=== PATIENT | female | born 1945 | race Caucasian/White ===

== ENCOUNTER 2016-05-11 14:58 | Day surgery (SDC) | payer OTHER ==
[~2016-05-11 14:58] MED LIST: ASPI81TA82 PO; ATOR40TA PO; CALC-65 PO; COQ-150C PO; FISH100020 PO; GLUC250C5 PO; LOSA100T3 PO; MULT-65 PO; PLAV75TA PO; SYNT25TA PO; VITATAB11 PO
--- NOTE | 2016-05-11 16:09 | RADRPT ---
EXAM DATE/TIME: 05/11/2016 00:00 [facility] COMPARISON : No previous studies available for comparison. INDICATIONS : Recurrent Left carotid stenosis OBJECTIVE: Temperature: 99 Heart Rate: 80 Blood Pressure: 169/67 Respiratory: 20 Oximetry: 100 PNEUMONIA VACCINE: YES HISTORY OF PRESENT ILLNESS: Patient has history of bilateral carotid aren't endarterectomy on the left side in [address] angiogram demonstrating recurrent high grade stenosis characteristic of intimal hyperplasia greater t baer 80%. The patient has no numbness, weakness or TIAs. She takes aspirin Plavix without difficulty. She has history of coronary artery disease with stenting but no chest pain at this time. There is no history of peripheral vascular disease. The patient at also has a history of abdominal pain recently diagnosed with severe gastritis the mesenteric angiography is also recommended. PAST MEDICAL HISTORY : L Carotid stenosis Gastritis,Gastroparesis Hypercholesterolemia. Hypothyroidism. Hypertension. Osteoarthritis. PAST SURGICAL HISTORY : Carotid endarterectomy. bilateral Carotid stent. states times 5 Left hip Cholecystectomy. SOCIAL HISTORY : No alcohol use. Tobacco; Patient has a ALLERGIES: Erythromycin lesions in colon Codeine-heart flutters MEDICATIONS: [id number] mg q.h.s. CINNAMON 1000 mg q.h.s. B12 1000 mcg q.h.s. ATORVASTATIN 40 mg q.h.s. METOPOROLOL TARTRATE 25 mg q.h.s. MIRALAX 1CAP prn LOSARTAN 25 mg q.d. SYNTHROID 25 mcg q.d. Plavix (Clopidogrel Bisulfate)75 mg q.d. CHANTIX 1 q.d. PHYSICAL EXAMINATION: CV: Regular rate and rhythm. Lungs: Clear to auscultation. Neuro: Cranial nerves II through XII are grossly intact. Motor and sensory intact. 2+ left carotid bruit normal on right well healed bilateral endarterectomy scars IMAGING STUDIES: CT angiography performed at [facility] dated 04/09/16 demonstrates high grade ostial sten osis involving the left common carotid artery origin greater than 80% with 70-80% stenosis involving the left internal carotid artery. 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 The plaque at the reji gin of the left internal carotid artery is irregular with fibrous and calcific material present. ASSESSMENT: Asymptomatic high-grade stenosis with tandem lesions involving the left common carotid artery origin and bifurcation PLAN: Left carotid stenting Diagnostic mesentery angiography TIME SPENT: 15 minutes Armando Fam MD on May 11, 2016 at 15:54 Board Certified Radiologist. This report was verified electronically.
== END 2016-05-11 15:45 | disposition home or self-care (01) ==
LOC: HROP 14:58 → HRIP 14:58 → HROP 15:45
PROVIDERS: ATTEND Surgery Vascular Surgery
DX: I65.23 Occlusion and stenosis of bilateral carotid arteries (principal); K31.84 Gastroparesis; I25.10 Atherosclerotic heart disease of native coronary artery without angina pectoris; E03.9 Hypothyroidism, unspecified; E78.00 Pure hypercholesterolemia, unspecified; Z95.5 Presence of coronary angioplasty implant and graft; Z79.02 Long term (current) use of antithrombotics/antiplatelets
CPT/HCPCS: 99213; G0463

== ENCOUNTER 2016-05-13 09:50 | Inpatient (IN) | payer OTHER, MEDICARE ==
[2016-05-13] VITALS (11 sets, daily range): BP systolic 118–166; BP diastolic 54–72; PULSE 49–66; RESP 16–20; TEMP 96.9–98.4; O2SAT 96–99
[~2016-05-13] VITALS: Ht 156.2 cm; Wt 53.0 kg
[2016-05-13] MEDS ORDERED: ATOR40TA16 PO (10:26)
[2016-05-13] MEDS ORDERED: SYNT25TA PO (10:26)
[2016-05-13] MEDS ORDERED: ASPI1TAB69 PO (10:26)
[2016-05-13] MEDS ORDERED: GLUC500C5 PO (10:26)
[2016-05-13] MEDS ORDERED: PLAV75TA29 PO (10:26)
[2016-05-13] MEDS ORDERED: BIOT1TAB2 PO (10:26)
[2016-05-13] MEDS ORDERED: B COTAB6 PO (10:26)
[2016-05-13] MEDS ORDERED: CINN500C PO (10:26)
[2016-05-13] MEDS ORDERED: CHOL1CHW5 PO (10:26)
[2016-05-13] MEDS ORDERED: VITA10004 PO (10:26)
[2016-05-13] MEDS ORDERED: LOSA50TA PO (10:26)
[2016-05-13] MEDS ORDERED: FISH500C PO (10:26)
[2016-05-13] MEDS ORDERED: METO25TA3 PO (10:26)
[2016-05-13] MEDS ORDERED: CO Q200C PO (10:26)
[2016-05-13] MEDS ORDERED: MIRA33504 PO (10:26)
[2016-05-13] MEDS ORDERED: PANT40TA3 PO (10:27)
[2016-05-13] MEDS ORDERED: LACTCAP8 PO (10:27)
[2016-05-13] MEDS ORDERED: VARE1PAK5 PO (10:27)
[2016-05-13] MEDS ORDERED: SUCR1TAB PO (10:27)
[2016-05-13] MEDS ORDERED: SODIUM CHLOR 0.9% 1000 ML INJ 1,000 ML IV SCH (10:30)
[2016-05-13 11:05] LABS: AUTOMATED NEUTROPHIL # 3.4 TH/MM3 (1.8-7.7); BASOPHIL % 0.1 % (0.0-2.0); EOSINOPHIL % 0.2 % (0.0-4.0); HEMATOCRIT 36.8 % (35.0-46.0); HEMO FLAGS DIFF FINAL; LYMPH % 22.4 % (9.0-44.0); LYMPHOCYTE # 1.2 TH/MM3 (1.0-4.8); MEAN CELL VOLUME 81.9 FL (80.0-100.0); MEAN CORPUSCULAR HGB CONC 34.2 % (32.0-36.0); MONO % 13.1 % (0.0-8.0); NEUT % 64.2 % (16.0-70.0); PLATELET COUNT 108 TH/MM3 (150-450); RED CELL DISTRIBUTION WIDTH 14.7 % (11.6-17.2); WHITE BLOOD COUNT 5.3 TH/MM3 (4.0-11.0)
[2016-05-13 11:12] LABS: APTT (PATIENT) 28.4 SEC (24.3-30.1); PROTHROMBIN TIME - PATIENT 11.4 SEC (9.8-11.6)
[2016-05-13 11:21] LABS: BICARBONATE 27.6 MEQ/L (21.0-32.0); POTASSIUM 3.7 MEQ/L (3.5-5.1)
[2016-05-13] MEDS ORDERED: POLYETHYLENE GLYCOL 17 GM PKG PO PRN (12:15)
[2016-05-13] MEDS ORDERED: MIDAZOLAM HCL 5 MG/5 ML VIAL ONE (12:25)
[2016-05-13] MEDS ORDERED: VERAPAMIL INJ 10 MG/4 ML VIAL ONE (12:25)
[2016-05-13] MEDS ORDERED: fentaNYL CITRATE 250 MCG/5 ML AMP ONE (12:25)
[2016-05-13] MEDS: SUCRALFATE 1 GM TAB PO SCH ×3 (13:00→22:00)
[2016-05-13] MEDS ORDERED: ceFAZolin 2 GM PREMIX 50 ML ONE (13:18)
[2016-05-13] MEDS ORDERED: HEPARIN SODIUM - IV 10,000 UNITS/10 ML VIAL ONE (13:34)
[2016-05-13] MEDS ORDERED: ATROPINE SULFATE 1 MG/10 ML SYRINGE ONE (13:38)
[2016-05-13] MEDS ORDERED: IODIXANOL 320 MG/ML 50 ML VIAL (for RAD SPEC) I-ARTERIAL ONE (15:05)
[2016-05-13] MEDS ORDERED: BISACODYL 10 MG SUPP PR PRN (15:30)
[2016-05-13] MEDS ORDERED: MAGNESIUM HYDROXIDE SUSP 30 ML CUP PO PRN (15:30)
[2016-05-13] MEDS ORDERED: PROCHLORPERAZINE 25 MG SUPP PR PRN (15:30)
[2016-05-13] MEDS ORDERED: ONDANSETRON HCL 4 MG/2 ML VIAL IVP PRN (15:30)
[2016-05-13] MEDS ORDERED: ACETAMINOPHEN 325 MG TAB PO PRN (15:30)
[2016-05-13] MEDS ORDERED: SENNOSIDES 8.6 MG TAB PO PRN (15:30)
[2016-05-13] MEDS ORDERED: SODIUM CHLORIDE 0.9% FLUSH 5 ML FLUSH FLUSH PRN (15:30)
--- NOTE | 2016-05-13 15:40 | HHI.HP ---
[facility] Unknown Admission Diagnosis Diagnoses: Chief Complaint: post CEA Travel History International Travel<30 Days: No Contact w/Intl Traveler <30 Da: No Traveled to Known Affected Are: No History of Present Illness 68 y/o female with history of CAD, hypertension,dyslipidemia, hypothyroidism, carotid stenosis. Patient was schedule for CEA today. Was seen in [facility]. Patient is feeling doof. Right groin without bleeding. Say she has a slight headache because she did not drink coffee today. Denies change in vision or motor deficit. No n/v/d/c. No cp, sob, n/v/c/d. Review of Systems 12 system ROS revewed and negative except as stated on HPI Past Family Social History Past Medical History CAD hypertension dyslipidemia hypothyroidism carotid artery disease Past Surgical History Right carotid endarterectomy wounds. Patch angioplasty 07/02/14 Left hip replacement 05/07/[address] Domingo 2005 Multiple cardiac stents Reported Medications Reported Meds & Active Scripts Active Reported Chantix Continuing Month Warren (Varenicline) 1 Mg Warren 1 Mg PO BIDPC Sucralfate 1 Gm Tab 1 Gm PO QID on empty stomach Pantoprazole (Pantoprazole Sodium) 40 Mg Tab 40 Mg PO DAILY Probiotic (Lactobacillus Acidophilus) 1 Cap Cap 1 Cap PO DAILY Glucosamine (Glucosamine Sulfate) 500 Mg Cap 500 Mg PO DAILY Fish Oil (Roscoe-3 Fatty Acids) 500 Mg Cap 1 Cap PO DAILY Co Q-10 (Coenzyme Q10 (Ubidecarenone)) 200 Mg Cap 1 Cap PO DAILY Vitamin D3 (Cholecalciferol) 2,000 Unit Chew 2,000 Units PO DAILY Biotin Maximum Strength (Biotin) 10,000 Mcg Tab 10,000 Mcg PO DAILY Plavix (Clopidogrel Bisulfate) 75 Mg Tab 75 Mg PO DAILY Synthroid (Levothyroxine Sodium) 25 Mcg Tab 25 Mcg PO DAILY Losartan (Losartan Potassium) 50 Mg Tab 25 Mg PO DAILY Miralax Powder (Polyethylene Glycol 3350 Powder) 17 Gm Powd 17 Gm PO DIRECTED PRN Mix and dissolve one measuring cap-ful (17 grams) in water or juice. Metoprolol Tartrate 25 Mg Tab 25 Mg PO HS Atorvastatin (Atorvastatin Calcium) 40 Mg Tab 40 Mg PO HS Vitamin B-12 Cr (Cyanocobalamin) 1,000 Mcg Tab 1,000 Mcg PO HS B Complete (B-Complex W/Biotin & Folic Acid) 1 Tab 1 Tab PO DAILY Cinnamon 500 Mg Cap 1,000 Mg PO HS Aspirin 81 Mg Tabdr 81 Mg PO HS Plavix (Clopidogrel Bisulfate) 75 Mg Tab 75 Mg PO DAILY Coq-10 (Coenzyme Q10 (Ubidecarenone)) 150 Mg Cap 1 Cap PO DAILY Glucosamine Chondroitin (Glucosamine-Chondroitin) 1 Cap Cap 1 Cap PO DAILY Vitamin B Complex 1 Tab PO DAILY Losartan Potassium-HCT 100-12.5 1 Tab Tab 1 Tab PO DAILY Aspir-81 (Aspirin) 81 Mg Tab 81 Mg PO HS Multi-Vitamin Daily (Multivitamins) Daily Tab 1 Tab PO DAILY Calcium Citrate + (Multiple Minerals W/ Vitamins) 1 Tab Tab 1 Tab PO DAILY Fish Oil (Roscoe-3 Fatty Acids) 1,000 Mg Cap 1,000 Mg PO BID Atorvastatin 40 mg (Atorvastatin Calcium) 40 Mg Tab 1 Tab PO HS Synthroid 25 mcg (Levothyroxine Sodium) 25 Mcg Tab 1 Tab PO DAILY Allergies: Coded Allergies: Erythromycin (Verified Adverse Reaction, Severe, LESIONS IN COLON, 05/13/16) Codeine (Verified Adverse Reaction, Intermediate, HEART FLUTTERS, 05/13/16) Family History Father has cardiac problems at 84 ya Grandmother with dementia in 90 ya Mother HTN Social History Smoke 5-6 cigarettes a day, quit today. Says she is taking chantix. Says she used to smoke 1 and 1/2 PPD for 50 years. No alcohol use or illicit drug use Physical Exam Vital Signs Vital Signs Date Time Temp Pulse Resp B/P Pulse Ox O2 Delivery O2 Flow Rate FiO2 05/13/16 10:15 98.4 66 20 137/59 99 Physical Exam GENERAL: This is a well-nourished, well-developed patient, in no apparent distress. SKIN: No rashes, ecchymoses or lesions. Cool and dry. HEAD: Atraumatic. Normocephalic. No temporal or scalp tenderness. EYES: Pupils equal round and reactive. Extraocular motions intact. No scleral icterus. No injection or drainage. ENT: Nose without bleeding, purulent drainage or septal hematoma. Throat without erythema, tonsillar hypertrophy or exudate. Uvula midline. Airway patent. NECK: Trachea midline. No JVD or lymphadenopathy. Supple, nontender, no meningeal signs. CARDIOVASCULAR: Regular rate and rhythm without murmurs, gallops, or rubs. RESPIRATORY: Clear to auscultation. Breath sounds equal bilaterally. No wheezes , rales, or rhonchi. GASTROINTESTINAL: Abdomen soft, non-tender, nondistended. No hepato-splenomegaly , or palpable masses. No guarding. MUSCULOSKELETAL: Right groin with dressing c/d/i,no hematoma. Extremities without clubbing, cyanosis, or edema. No joint tenderness, effusion, or edema noted. No calf tenderness. Negative Homans sign bilaterally. NEUROLOGICAL: Awake and alert. Cranial nerves II through XII intact. Motor and sensory grossly within normal limits. Five out of 5 muscle strength in all muscle groups. Normal speech. Laboratory Laboratory Tests Test 05/13/16 10:25 White Blood Count 5.3 Red Blood Count 4.50 Hemoglobin 12.6 Hematocrit 36.8 Mean Corpuscular Volume 81.9 Mean Corpuscular Hemoglobin 28.0 Mean Corpuscular Hemoglobin 34.2 Concent Red Cell Distribution Width 14.7 Platelet Count 108 Mean Platelet Volume 9.4 Neutrophils (%) (Auto) 64.2 Lymphocytes (%) (Auto) 22.4 Monocytes (%) (Auto) 13.1 Eosinophils (%) (Auto) 0.2 Basophils (%) (Auto) 0.1 Neutrophils # (Auto) 3.4 Lymphocytes # (Auto) 1.2 Monocytes # (Auto) 0.7 Eosinophils # (Auto) 0.0 Basophils # (Auto) 0.0 CBC Comment DIFF FINAL Differential Comment Prothrombin Time 11.4 Prothromb Time International 1.0 Ratio Activated Partial 28.4 Thromboplast Time Sodium Level 138 Potassium Level 3.7 Chloride Level 104 Carbon Dioxide Level 27.6 Anion Gap 6 Blood Urea Nitrogen 10 Creatinine 0.75 Estimat Glomerular Filtration 77 Rate Random Glucose 78 Calcium Level 8.6 Result Diagram: 05/13/16 1025 05/13/16 1025 Assessment and Plan Assessment and Plan Carotid artery disease. S/P CEA 05/13/[address] Fam. Monitor in Surgical ICU overnight Continue plavix and Aspirin after the procedure, continue statin. -CAD-continue home med, including ASA and plavix continue losartan and statin -Hypertension/ dyslipidemia; continue home meds -Hypothyroidism; continue home meds -OA had left total hip arthroplasty DVT prophylaxis SCD/TEDs per surgeon Code Status full code Discussed Condition With patient, [facility] nurse, Dr Fam Physician Certification 2 Midnight Certification Type: Admission for Inpatient Services Order for Inpatient Services The services are ordered in accordance with Medicare regulations or non- Medicare payer requirements, as applicable. In the case of services not specified as inpatient-only, they are appropriately provided as inpatient services in accordance with the 2-midnight benchmark. Estimated LOS (days): 3 days is the estimated time the patient will need to remain in the hospital, assuming treatment plan goals are met and no additional complications. Post-Hospital Plan: Not yet determined Emi Patrick MD May 13, 2016 15:40
--- NOTE | 2016-05-13 16:59 | PD.RAD ---
Post Procedure Progress Note Pre Procedure Diagnosis: (1) Carotid stenosis Post Procedure Diagnosis: (1) Carotid stenosis Procedure Date: May 13, 2016 Supervising Radiologist: Armando Fam Proceduralist/Assist: Ramón Becerra RT(R), RT Farhan(R)() Anesthesia: Conscious Sedation Plan of Activity Patient to Unit: Critical Care Patient Condition: Good See PACS Report for procedural detail/treatment Vascular-Arterial Procedure Procedure 1 Procedure Site: Left Carotid Procedure(s): Stent Placement Access Access Site(s): Right Femoral Artery Closure Site(s): Right vascular closure device Armando Fam MD May 13, 2016 16:59
[2016-05-13] MEDS: VARENICLINE 1 MG TAB PO SCH (18:00)
[2016-05-13] MEDS: ASPIRIN EC 81 MG TABEC PO SCH (21:57)
[2016-05-13] MEDS: METOPROLOL TARTRATE 25 MG TAB PO SCH (21:58)
[2016-05-13] MEDS: SODIUM CHLORIDE 0.9% FLUSH 5 ML FLUSH FLUSH SCH (21:58)
[2016-05-13] MEDS: ATORVASTATIN 40 MG TAB PO SCH (21:58)
[2016-05-14] VITALS (14 sets, daily range): BP systolic 101–141; BP diastolic 51–62; PULSE 56–90; RESP 14–26; TEMP 97.2–98.8; O2SAT 96–98
[2016-05-14 05:21] LABS: ALKALINE PHOSPHATASE 65 U/L (45-117); ALT (GPT) 9 U/L (10-53); ANION GAP 7 MEQ/L (5-15); AST (GOT) 9 U/L (15-37); BICARBONATE 28.7 MEQ/L (21.0-32.0); BLOOD UREA NITROGEN 10 MG/DL (7-18); CHLORIDE 106 MEQ/L (98-107); GLOMERULAR FILTRATION RATE 82 ML/MIN (>89); POTASSIUM 4.4 MEQ/L (3.5-5.1); SODIUM (NA) 142 MEQ/L (136-145); TOTAL BILIRUBIN ADULT 0.4 MG/DL (0.2-1.0)
--- NOTE | 2016-05-14 07:09 | HHI.DCPOC ---
Discharge Care Plan Goals to Promote Your Health * To prevent worsening of your condition and complications * To maintain your health at the optimal level Directions to Meet Your Goals Take your medications as prescribed Follow your dietary instruction Follow activity as directed Keep your appointments as scheduled Take your immunizations and boosters as scheduled If your symptoms worsen call your PCP, if no PCP go to Urgent Care Center or Emergency Room Smoking is Dangerous to Your Health. Avoid second hand smoke Call the 24-hour hour crisis hotline for domestic abuse at Emi Patrick MD May 14, 2016 07:09
[2016-05-14] MEDS ORDERED: EPINEPHrine HCL (1:10,000) 1 MG/10 ML SYRINGE ONE (07:53)
[2016-05-14] MEDS ORDERED: LIDOCAINE HCL 2% 100 MG/5 ML SYRINGE ONE (07:53)
[2016-05-14] MEDS ORDERED: ATROPINE SULFATE 1 MG/10 ML SYRINGE ONE (07:53)
[2016-05-14] MEDS ORDERED: MORPHINE SULFATE 8 MG/ML INJ ONE (07:57)
--- NOTE | 2016-05-14 08:06 | HHI.PR ---
Subjective Remarks Per nurse she was bleeding from right groin in the morning when she went to the bathroom. Bleeding stopped with pressure. No chest pain , sob, n/v/d/c. No headache. Objective Vitals Vital Signs Date Time Temp Pulse Resp B/P Pulse Ox O2 Delivery O2 Flow Rate FiO2 05/14/16 06:00 68 05/14/16 04:00 57 05/14/16 04:00 57 16 104/51 96 05/14/16 02:00 58 05/14/16 00:00 56 05/14/16 00:00 97.2 56 14 107/53 97 05/13/16 22:00 58 05/13/16 20:00 96.9 62 20 166/72 96 05/13/16 20:00 62 05/13/16 19:34 98 21 05/13/16 19:00 99 Room Air 05/13/16 18:00 98 Room Air 05/13/16 18:00 54 05/13/16 17:43 98.3 50 16 143/63 99 05/13/16 16:55 49 16 147/54 99 05/13/16 16:25 50 16 129/64 99 05/13/16 15:55 49 16 149/70 99 05/13/16 15:25 53 16 118/70 97 05/13/16 15:10 49 16 118/70 97 05/13/16 10:15 98.4 66 20 137/59 99 I/O 05/13/16 05/13/16 05/13/16 05/14/16 05/14/16 05/14/16 07:00 15:00 23:00 07:00 15:00 23:00 Intake Total 240 ml 240 ml Balance 240 ml 240 ml Intake Oral 240 ml 240 ml IV Total 0 ml 0 ml # Voids 2 1 # Bowel Movements 0 0 Result Diagram: 05/13/16 1025 05/14/16 0336 Imaging Last Impressions Vascular Stent Procedure 05/13/16 1500 Signed Impressions: Service Date/Time: May 12:40 - CONCLUSION: 1. Uncomplicated carotid artery stent placement as above. 2. Ultrasound examination at 6, 12, 18 and 24 months following procedure should be performed to evaluate stent patency. Armando Fam MD Objective Remarks GENERAL: This is a well-nourished, well-developed patient, in no apparent distress. SKIN: No rashes, ecchymoses or lesions. Cool and dry. HEAD: Atraumatic. Normocephalic. No temporal or scalp tenderness. EYES: Pupils equal round and reactive. Extraocular motions intact. No scleral icterus. No injection or drainage. ENT: Nose without bleeding, purulent drainage or septal hematoma. Throat without erythema, tonsillar hypertrophy or exudate. Uvula midline. Airway patent. NECK: Trachea midline. No JVD or lymphadenopathy. Supple, nontender, no meningeal signs. CARDIOVASCULAR: Regular rate and rhythm without murmurs, gallops, or rubs. RESPIRATORY: Clear to auscultation. Breath sounds equal bilaterally. No wheezes , rales, or rhonchi. GASTROINTESTINAL: Abdomen soft, non-tender, nondistended. No hepato-splenomegaly , or palpable masses. No guarding. MUSCULOSKELETAL: Right groin with new dressing c/d/i,no hematoma, pressure applied. Extremities without clubbing, cyanosis, or edema. No joint tenderness, effusion, or edema noted. No calf tenderness. Negative Homans sign bilaterally. NEUROLOGICAL: Awake and alert. Cranial nerves II through XII intact. Motor and sensory grossly within normal limits. Five out of 5 muscle strength in all muscle groups. Normal speech. A/P Assessment and Plan Carotid artery disease. S/P left CEA 05/13/[address] Fam. Monitor in Surgical ICU. 05/14 right groin bleeding after she went to the bath hold plavix and Aspirin in am today Continue statin at night. -CAD-continue home med, including ASA and plavix continue losartan and statin -Hypertension/ dyslipidemia; continue home meds -Hypothyroidism; continue home meds -OA had left total hip arthroplasty DVT prophylaxis SCD/TEDs per surgeon Code Status full code Discussed Condition With patient, ICU nurse Emi Patrick MD May 14, 2016 08:06
[2016-05-14] MEDS: LOSARTAN 25 MG TAB PO SCH (08:17)
[2016-05-14] MEDS: SUCRALFATE 1 GM TAB PO SCH ×4 (08:17→22:05)
[2016-05-14] MEDS: LEVOTHYROXINE SODIUM 25 MCG TAB PO SCH (08:17)
[2016-05-14] MEDS: PANTOPRAZOLE SOD 40 MG DELAYED RELEASE TAB PO SCH (08:17)
[2016-05-14] MEDS: SODIUM CHLORIDE 0.9% FLUSH 5 ML FLUSH FLUSH SCH ×2 (08:18→20:33)
[2016-05-14] MEDS: LACTOBACILLUS ACIDOPHILUS TAB PO SCH (08:19)
[2016-05-14] MEDS: CLOPIDOGREL 75 MG TAB PO SCH (08:19)
[2016-05-14] MEDS: VARENICLINE 1 MG TAB PO SCH ×2 (09:00→17:49)
[2016-05-14] MEDS ORDERED: MORPHINE SULFATE 4 MG/ML INJ IV PUSH ONE (09:30)
--- NOTE | 2016-05-14 10:46 | RADRPT ---
EXAM DATE/TIME: 05/13/2016 12:40 [facility] COMPARISON: No previous studies available for comparison. INDICATIONS : Left carotid stenosis. MEDICAL HISTORY : 1.Left carotis stenosis 2. Gastritis 3. Gastroparesis 4. Hypothyroidism 5. HTN 6. Osteoarthritis SURGICAL HISTORY : 1. Carotid endarterectomy bilateral. 2. Left hip 3. Cholecystectomy ENCOUNTER: Initial ACUITY: 3 weeks PAIN SCORE: 04/13 LOCATION: back FLUORO TIME: 34.9 minutes ACCESS SITE: Right Femoral artery SEDATION TIME: 75 minutes CONTRAST: 125 cc Visipaque (iodixanol) MEDICATION(S): 1.) 5 mg midazolam (Versed) IV 2.) 250 mcg fentanyl (Sublimaze) IV Prophylactic antibiotics were administered with appropriate pre-procedure timing. DEVICE(S): 1.) Left common carotid artery 8mm x 17mm stent (balloon expanding) 2.) Left common carotid artery 4.0mm x20mm TROUBLE OPERATOR balloon 3.) Left internal carotid artery 6 SpideRX embolic protection 4.) Left internal carotid artery 4.0 mm x 20mm TROUBLE OPERATOR balloon 5.) Left internal carotid artery 10 -7- 40 stent (self expanding) 6.) Right common femoral artery 8 fr Angio-Seal PROCEDURE : 1. Ultrasound guided puncture of the right common femoral artery. 2. Angiography of the right common femoral artery prior to closure device. 3. Conscious sedation with continuous EKG and oximetry monitoring. 4. Percutaneous closure of the femoral artery. 5. Angiography of the left common carotid artery 6. stenting of the left common carotid artery 7. Angiography of the left internal carotid artery 8. Stenting of the left internal carotid artery The risks, benefits and alternatives to the procedure were explained and verbal and written consent w as obtained. The site was prepped in sterile fashion. Full sterile technique was used, including ca p, mask, sterile gloves and gown and a large sterile sheet. Hand hygiene and 2% chlorhexidine and/or betadine/alcohol prep was utilized per protocol for cutaneous antisepsis. The skin and subcutaneous tissues were infiltrated with local anesthetic solution. With ultrasound and fluoroscopic guidance the right common femoral artery was punctured and a vascula r sheath was placed. Angiography of the common femoral artery was performed for evaluation prior to p ercutaneous closure device placement. The patient has a 2 aortic arch. Examination of the carotid artery demonstrates the lesion to be in t he internal carotid artery. Visible thrombus is not present. Ulceration is present. There is mild robb cification present. The lesion length is 15 millimeters. The minimal luminal diameter is one millimet ers. The diameter of the distal internal carotid artery for reference is 5 millimeters. The percent s tenosis by NASCET criteria is 80 %. Angiography of the left common carotid artery origin demonstrates focal high grade stenosis at the or igin of the left common carotid artery. On systemic heparinization a guidewire was advanced beyond th e stenosis into the external carotid artery. A 6 Telugu sheath was placed at the ostium of the vessel and angiography was confirmatory for high-grade stenosis. Balloon dilatation was performed with a 4 mm balloon and subsequently an 8 mm stent was placed at the ostium. Over this wire a guide catheter w as placed into the common carotid artery. The distal protection device was placed in the high cervica l internal carotid artery. Angiography of the bifurcation demonstrates irregular ulcerated plaque inv olving the internal carotid artery as well as extending proximally to the bifurcation. The prescribed stent was placed and followup angiography demonstrates no significant residual stenosis. Controll ar teriogram of the brain performed prior to procedure as well as the repeat angiogram performed followi ng stenting were unchanged. The patient was neurologically intact at the termination of procedure. The puncture site was closed with a Perclose suture mediated closure device. The patient tolerated t he procedure well and there were no complications. Conscious sedation was performed with the prescribed dosages and duration as above. EKG and oximetry remained stable throughout the procedure. CONCLUSION: 1. Uncomplicated carotid artery stent placement as above. 2. Ultrasound examination at 6, 12, 18 and 24 months following procedure should be performed to evalu ate stent patency. Armando Fam MD on May 14, 2016 at 10:32 Board Certified Radiologist. This report was verified electronically.
[2016-05-14 11:33] LABS: AUTOMATED NEUTROPHIL # 3.9 TH/MM3 (1.8-7.7); BASOPHIL % 0.2 % (0.0-2.0); EOSINOPHIL % 0.1 % (0.0-4.0); HEMATOCRIT 33.8 % (35.0-46.0); HEMO FLAGS DIFF FINAL; LYMPHOCYTE # 0.8 TH/MM3 (1.0-4.8); MEAN CORPUSCULAR HEMOGLOBIN 28.1 PG (27.0-34.0); MEAN CORPUSCULAR HGB CONC 34.7 % (32.0-36.0); NEUT % 68.7 % (16.0-70.0); PLATELET COUNT 100 TH/MM3 (150-450); RED BLOOD COUNT 4.17 MIL/MM3 (4.00-5.30); RED CELL DISTRIBUTION WIDTH 14.4 % (11.6-17.2); WHITE BLOOD COUNT 5.7 TH/MM3 (4.0-11.0)
[2016-05-14] MEDS ORDERED: ONDANSETRON HCL 4 MG/2 ML VIAL IV PUSH PRN (14:15)
--- NOTE | 2016-05-14 18:01 | RADRPT ---
EXAM DATE/TIME: 05/13/2016 12:40 [facility] COMPARISON: No previous studies available for comparison. INDICATIONS : Abdomin pain. Weight loss. MEDICAL HISTORY : 1.HTN 2.Osteoaritis 3.left carotid stenosis 4. Gastroparesis SURGICAL HISTORY : 1.Bilateral carotid endarterctomy 2. Left hip surgery 3. Cholecystectomy ENCOUNTER: Initial ACUITY: 3 weeks PAIN SCORE: 1/10 LOCATION: mid back FLUORO TIME: 34.9 minutes ACCESS SITE: Right Femoral artery SEDATION TIME: 75 minutes CONTRAST: 1.) 125 cc Visipaque (iodixanol) MEDICATION(S): 1.) 5 mg midazolam (Versed) IV 2.) 250 mcg fentanyl (Sublimaze) IV PROCEDURE : 1. Ultrasound-guided puncture of the access site. 2. Angiography of the access site prior to closure device. 3. Conscious sedation with continuous EKG and Oximetry monitoring. 4. Percutaneous closure of the access site. 5. Angiography of the abdominal aorta The risks, benefits and alternatives to the procedure were explained and verbal and written consent w as obtained. The site was prepped in sterile fashion. Full sterile technique was used, including ca p, mask, sterile gloves and gown and a large sterile sheet. Hand hygiene and 2% chlorhexidine and/or betadine/alcohol prep was utilized per protocol for cutaneous antisepsis. The skin and subcutaneous tissues were infiltrated with local anesthetic solution. With ultrasound and fluoroscopic guidance the selected artery was punctured and a vascular sheath was placed. Angiography of the common femoral artery was performed for evaluation prior to percutaneous closure device placement. Digital abdominal aortogram was performed in the AP and lateral projections. The origins of the armin c axis and superior mesenteric artery cannot be identified. The superior mesenteric artery is clearly occluded with a large inferior mesenteric artery arising from a distal aortic stenosis with a large marginal artery supplying at least the right hepatic artery as well as the superior mesenteric artery . This may reflect a replaced right hepatic artery. The left hepatic artery may be arising from the c eliac axis though the splenic artery fills late. Probing of the abdominal aorta with a diagnostic cat heter could not cannulate either the celiac axis or superior mesenteric artery. Hemostasis was obtained with the prescribed medicated closure device. Conscious sedation was perform ed with the prescribed dosages and duration as above. EKG and oximetry remained stable throughout th e procedure. The patient was sent to post anesthesia recovery in stable condition. CONCLUSION: 1. 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 2. Small bowel supply arises in a retrograde fashion from a large marginal artery. 3. The inferior mesenteric artery arises an area of high grade stenosis of the infrarenal, aorta eloise uring 7 mm. 4. Possible replaced right hepatic artery. 5. If There is necessity for further evaluation CT angiography is recommended to further delineate th is anatomy. Armando Fam MD on May 14, 2016 at 17:51 Board Certified Radiologist. This report was verified electronically.
[2016-05-14] MEDS: ASPIRIN EC 81 MG TABEC PO SCH (20:33)
[2016-05-14] MEDS: ATORVASTATIN 40 MG TAB PO SCH (20:34)
[2016-05-14] MEDS: METOPROLOL TARTRATE 25 MG TAB PO SCH (20:34)
[2016-05-15] VITALS (7 sets, daily range): BP systolic 91–131; BP diastolic 44–58; PULSE 66–74; RESP 13–19; TEMP 99.1; O2SAT 96–98
[2016-05-15] MEDS: SUCRALFATE 1 GM TAB PO SCH (08:27)
[2016-05-15] MEDS: LOSARTAN 25 MG TAB PO SCH (09:00)
[2016-05-15] MEDS: VARENICLINE 1 MG TAB PO SCH (09:00)
[2016-05-15] MEDS: LEVOTHYROXINE SODIUM 25 MCG TAB PO SCH (09:30)
[2016-05-15] MEDS: SODIUM CHLORIDE 0.9% FLUSH 5 ML FLUSH FLUSH SCH (09:30)
[2016-05-15] MEDS: LACTOBACILLUS ACIDOPHILUS TAB PO SCH (09:30)
[2016-05-15] MEDS: CLOPIDOGREL 75 MG TAB PO SCH (09:31)
[2016-05-15] MEDS: PANTOPRAZOLE SOD 40 MG DELAYED RELEASE TAB PO SCH (09:31)
== END 2016-05-15 11:30 | disposition home or self-care (01) | DRG 36 ==
LOC: HROP 09:50 → HRIP 09:51 → HROP 15:30 → N03A 15:31
PROVIDERS: ADMIT Hospitalist; ATTEND Hospitalist
PROC: 037J3DZ Dilation of Left Common Carotid Artery with Intraluminal Device, Percutaneous Approach (ICD-10-PCS; principal; 2016-05-13)
PROC: [UNRECOGNIZED PROCEDURE] (2016-05-13)
PROC: B3171ZZ Fluoroscopy of Left Internal Carotid Artery using Low Osmolar Contrast (ICD-10-PCS; 2016-05-13)
PROC: B3141ZZ Fluoroscopy of Left Common Carotid Artery using Low Osmolar Contrast (ICD-10-PCS; 2016-05-13)
DX: I65.22 Occlusion and stenosis of left carotid artery (principal); K31.84 Gastroparesis; I10 Essential (primary) hypertension; E03.9 Hypothyroidism, unspecified; I25.10 Atherosclerotic heart disease of native coronary artery without angina pectoris; E78.5 Hyperlipidemia, unspecified; Z87.891 Personal history of nicotine dependence; Z95.5 Presence of coronary angioplasty implant and graft; M16.12 Unilateral primary osteoarthritis, left hip; Z96.642 Presence of left artificial hip joint; Z79.02 Long term (current) use of antithrombotics/antiplatelets; Z79.82 Long term (current) use of aspirin
CPT/HCPCS: 36200; 37215; 37218; 75625; 76937; 80048; 80053; 85025; 85610; 85730; 87641; 99152; 99153; 99213; C1725; C1760; C1769; C1876; C1884; C1887; C1894; G0463; J0171; J0461; J0690; J1644; J2250; J2270; J3010; J7030; Q9967

== ENCOUNTER 2016-05-20 14:28 | Day surgery (SDC) | payer OTHER ==
[~2016-05-20 14:28] MED LIST changes: +ASPI1TAB69 PO; +ATOR40TA16 PO; +B COTAB6 PO; +BIOT1TAB2 PO; +CHOL1CHW5 PO; +CINN500C PO; +CO Q200C PO; +FISH500C PO; +GLUC500C5 PO; +LACTCAP8 PO; +LOSA50TA PO; +METO25TA3 PO; +MIRA33504 PO; +PANT40TA3 PO; +PLAV75TA29 PO; +SUCR1TAB PO; +VARE1PAK5 PO; +VITA10004 PO
[2016-05-20 15:00] VITALS: BP 129/57; PULSE 68; RESP 20; TEMP 98.4; O2SAT 99
--- NOTE | 2016-05-20 16:00 | RADRPT ---
EXAM DATE/TIME: 05/20/2016 00:00 [facility] COMPARISON : INDICATIONS : Follow up carotid stent OBJECTIVE: Temperature: 98.4 Heart Rate: 68 Blood Pressure: 129/57 Respiratory: 20 Oximetry: 99% PNEUMONIA VACCINE: YES HISTORY OF PRESENT ILLNESS: The patient is a 70-year-old who underwent stenting of the origin of the left common carotid at the [facility] and the origin of the left internal carotid at the bifurcation. The patient tolerated the initial procedure well. The patient did develop a hematoma in the right groin approximately 24 hours post pr ocedure. PAST MEDICAL HISTORY : Carotid stenosis. Arthritis. Hypertension. Cardiovascular disease. Genital warts Subclavian stenosis Hypercholesterolemia. Hypothyroidism. PAST SURGICAL HISTORY : Carotid stent. Carotid endarterectomy. bilateral C Section Gallbladder SOCIAL HISTORY : No alcohol use. Tobacco;former. Patient has a NKDA MEDICATIONS: [id number] mg q.d. Atorvastin 80 mg q.d. Lopressor (Metoprolol) 25 mg q.h.s. Plavix (Clopidogrel Bisulfate) 75 mg q.d. Losartan 50 mg q.d. Levothyroxine 25 mcg q.d. Sucralfate 1 gram q.i.d. Varenicline 1 mg b.i.d. Vitamin B12 1000 mcg q.d. Miralax powder 17 GM q.d. PHYSICAL EXAMINATION: The patient has a large bruise along the lower abdominal wall and in the right groin. There is no shantel dence of pseudoaneurysm. The right leg is warm. There are palpable dorsalis pedis and posterior tibia l pulses. ASSESSMENT: Patient has done well post stenting of the left carotid. There is resolving hematoma in the left groi n. PLAN: The patient was advised to continue Plavix and 81 mg aspirin. The patient will return for reassessmen t of the right groin should she notice an enlarging lump or suture. TIME SPENT: 20 minutes. Kristopher Bass MD on May 20, 2016 at 15:55 Board Certified Radiologist. This report was verified electronically.
== END 2016-05-20 15:55 | disposition home or self-care (01) ==
LOC: HROP 14:28 → HRIP 14:29 → HROP 15:55
PROVIDERS: ATTEND Radiology Body Imaging
DX: I65.22 Occlusion and stenosis of left carotid artery (principal); I25.10 Atherosclerotic heart disease of native coronary artery without angina pectoris; I10 Essential (primary) hypertension; E03.9 Hypothyroidism, unspecified; E78.00 Pure hypercholesterolemia, unspecified; M19.90 Unspecified osteoarthritis, unspecified site; Z87.891 Personal history of nicotine dependence

== ENCOUNTER 2016-06-03 10:50 | Day surgery (SDC) | payer OTHER ==
[~2016-06-03] VITALS: Ht 154.9 cm; Wt 54.5 kg
[~2016-06-03 10:50] MED LIST changes: -ASPI81TA82 PO; -ATOR40TA PO; -CALC-65 PO; -COQ-150C PO; -FISH100020 PO; -GLUC250C5 PO; -LOSA100T3 PO; -MULT-65 PO; -PLAV75TA PO; -VITATAB11 PO
[2016-06-03 11:15] VITALS: BP 167/73; PULSE 57; RESP 20; TEMP 98.1; O2SAT 99
--- NOTE | 2016-06-03 12:51 | RADRPT ---
EXAM DATE/TIME: 06/03/2016 11:34 [facility] COMPARISON: No previous studies available for comparison. INDICATIONS : Right groin bruising. MEDICAL HISTORY : Hypertension. Hypothyroidism. CAD. SURGICAL HISTORY : Carotid stent. Carotid endarterectomy. Patch angioplasty. ENCOUNTER: Initial ACUITY: 1 month PAIN SCORE: 3/10 LOCATION: Right groin. AREA EVALUATED: Right groin. FINDINGS: No pseudoaneurysm identified. There is a patent femoral artery and vein. There is heterogeneous echog enicity but no focal fluid collection is identified. CONCLUSION: 1. No evidence of pseudoaneurysm. Armando Fam MD on June 03, 2016 at 12:49 Board Certified Radiologist. This report was verified electronically.
== END 2016-06-03 12:30 | disposition home or self-care (01) ==
LOC: HRAD 10:50 → HRIP 10:55 → HRAD 12:30
PROVIDERS: ATTEND Radiology Body Imaging
DX: L76.32 Postprocedural hematoma of skin and subcutaneous tissue following other procedure (principal); I25.10 Atherosclerotic heart disease of native coronary artery without angina pectoris; I10 Essential (primary) hypertension; E03.9 Hypothyroidism, unspecified; Z95.5 Presence of coronary angioplasty implant and graft
CPT/HCPCS: 93926

== ENCOUNTER 2017-03-03 20:34 | Emergency (ER) | payer OTHER ==
[~2017-03-03] VITALS: Ht 154.9 cm; Wt 47.5 kg
[~2017-03-03 20:34] MED LIST changes: -CO Q200C PO; +COQ1200C3 PO; -MIRA33504 PO; -PANT40TA3 PO
[2017-03-03 21:00] VITALS: BP 151/61; PULSE 83; RESP 18; TEMP 98.9; O2SAT 99
[2017-03-03] MEDS ORDERED: SODIUM CHLOR 0.9% 1000 ML INJ 1,000 ML IV SCH ×3 (21:44→23:15)
[2017-03-03] MEDS ORDERED: ONDANSETRON HCL 4 MG/2 ML VIAL IVP ONE (21:45)
[2017-03-03] MEDS ORDERED: SODIUM CHLORIDE 0.9% FLUSH 10 ML FLUSH IV FLUSH PRN (21:45)
[2017-03-03] MEDS ORDERED: MORPHINE SULFATE 4 MG/ML INJ IV PUSH ONE (21:45)
--- NOTE | 2017-03-03 21:53 | PD ---
HPI Chief Complaint: Abdominal Pain Time Seen by Provider: 21:38 Travel History International Travel<30 days: No Contact w/Intl Traveler<30days: No Traveled to known affect area: No History of Present Illness HPI The patient is a 71-year-old female that complains of abdominal pain since July of this year. In the last week it has been getting worse and she states she cannot get anything down, the food stops up around the esophagus and then goes down and makes her constipated. She feels dehydrated. She has a history of gastroparesis and ulcer and is followed by Dr. Lehman. She has an appointment Tuesday to see Dr. Valverde now that Dr. Lehman has retired. Her pain is an 8/10, constant and a dull/achy sensation. She denies any blood in the stool and denies any vomiting. She has had a cholecystectomy. PFSH Past Medical History Arthritis: Yes Depression: No Cancer: No Cardiovascular Problems: Yes (CAD, MULTIPLE CARDIAC STENTS) High Cholesterol: Yes Chemotherapy: No Cerebrovascular Accident: Yes (TIA 2014) Diabetes: No Diminished Hearing: No Endocrine: Yes Gastrointestinal Disorders: Yes (Gastro peresis, Mesentery artery syndrome) Genitourinary: No Hepatitis: No Hiatal Hernia: No Hypertension: Yes Immune Disorder: No Medical other: Yes (CAROTID/SUBCLAVIN STENOSIS R SIDE--CANNOT TAKE BP'S ON R ARM) Musculoskeletal: Yes (ARTHRITIS) Neurologic: Yes (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) Psychiatric: No Reproductive: Yes (GENITAL WARTS) Respiratory: No (SMOKES 1 PPD) Radiation Therapy: No Thyroid Disease: Yes (HYPOTHYRODISM) Ulcer: Yes (STOMACH 2016) Tetanus Vaccination: < 5 Years Influenza Vaccination: No ?: Not Past Surgical History Abdominal Surgery: Yes (CHOLECYSTECTOMY ) AICD: No Body Medical Devices: CARDIAC STENTS X 6 Cardiac Surgery: Yes (HEART CATH - 6 CARDIAC STENTS) Gynecologic Surgery: Yes (C SECTION 1976) Joint Replacement: Yes (LEFT HIP ) Pacemaker: No Other Surgery: Yes Social History Alcohol Use: No Tobacco Use: Yes (1/2 pack per day) Substance Use: No Allergies-Medications (Allergen,Severity, Reaction): Coded Allergies: erythromycin base (Unverified Adverse Reaction, Severe, LESIONS IN COLON, 03/03/17) codeine (Unverified Adverse Reaction, Intermediate, HEART FLUTTERS, ) Reported Meds & Prescriptions Reported Meds & Active Scripts Active Reported Vitamin D3 Super Strength (Cholecalciferol) 2,000 Unit Tab 2,000 Units PO DAILY Centrum Women Tablet (Multivitamin/Iron/Folic Acid) 18 Mg Iron-400 Mcg Tablet 1 Tab PO DAILY Eql Cinnamon (Cinnamon) 500 Mg Cap 1,000 Mg PO HS Aspirin 81 Mg Chew 81 Mg CHEW DAILY Chantix Continuing Month Warren (Varenicline) 1 Mg Warren 1 Mg PO BIDPC Sucralfate 1 Gm Tab 1 Gm PO QID on empty stomach Probiotic (Lactobacillus Acidophilus) 1 Cap Cap 1 Cap PO DAILY Glucosamine (Glucosamine Sulfate) 500 Mg Cap 500 Mg PO DAILY Fish Oil ([place]-3 Fatty Acids) 500 Mg Cap 1 Cap PO DAILY Co Q-10 (Coenzyme Q10 (Ubidecarenone)) 200 Mg Cap 1 Cap PO DAILY Biotin Maximum Strength (Biotin) 10,000 Mcg Tab 10,000 Mcg PO DAILY Plavix (Clopidogrel Bisulfate) 75 Mg Tab 75 Mg PO DAILY Synthroid (Levothyroxine Sodium) 25 Mcg Tab 25 Mcg PO DAILY Losartan (Losartan Potassium) 50 Mg Tab 25 Mg PO DAILY Metoprolol Tartrate 25 Mg Tab 25 Mg PO HS Atorvastatin (Atorvastatin Calcium) 40 Mg Tab 40 Mg PO HS Vitamin B-12 Cr (Cyanocobalamin) 1,000 Mcg Tab 1,000 Mcg PO HS Review of Systems Except as stated in HPI: all other systems reviewed are Neg Physical Exam Narrative GENERAL: The patient is alert, oriented 3 and moderate apparent distress with her midline epigastric discomfort. The patient appears at least moderately dehydrated. Her vital signs show blood pressure 151/61 but are otherwise normal. SKIN: Focused skin assessment warm/dry. HEAD: Atraumatic. Normocephalic. EYES: Pupils equal and round. No scleral icterus. No injection or drainage. ENT: No nasal bleeding or discharge. Mucous membranes pink and moist. NECK: Trachea midline. No JVD. CARDIOVASCULAR: Regular rate and rhythm. No murmur appreciated. RESPIRATORY: No accessory muscle use. Clear to auscultation. Breath sounds equal bilaterally. GASTROINTESTINAL: Abdomen soft, with tenderness to direct palpation in the midline epigastrium, nondistended. Hepatic and splenic margins not palpable. I can completely reproduce the pain by pressing in the midline epigastrium. No guarding or rebound is present. I do feel the aorta which appears slightly enlarged. MUSCULOSKELETAL: No obvious deformities. No clubbing. No cyanosis. No edema. NEUROLOGICAL: Awake and alert. No obvious cranial nerve deficits. Motor grossly within normal limits. Normal speech. PSYCHIATRIC: Appropriate mood and affect; insight and judgment normal. Data Data Last Documented VS Vital Signs Date Time Temp Pulse Resp B/P (MAP) Pulse Ox O2 Delivery O2 Flow Rate FiO2 03/03/17 23:12 67 18 149/51 (83) 100 Room Air 03/03/17 21:00 98.9 Orders Orders Complete Blood Count With Diff (03/03/17 21:44) Comprehensive Metabolic Panel (03/03/17 21:44) Lipase (03/03/17 21:44) Urinalysis - C+S If Indicated (03/03/17 21:44) Ct Abd/Pel W Iv Contrast(Rout) (03/03/17 21:44) Iv Access Insert/Monitor (03/03/17 21:44) Ecg Monitoring (03/03/17 21:44) Oximetry (03/03/17 21:44) Morphine Inj (Morphine Inj) (03/03/17 21:45) Ondansetron Inj (Zofran Inj) (03/03/17 21:45) Sodium Chlor 0.9% 1000 Ml Inj (Ns 1000 M (03/03/17 21:44) Sodium Chloride 0.9% Flush (Ns Flush) (03/03/17 21:45) Potassium Chloride (Kcl) (03/03/17 22:30) Sodium Chlor 0.9% 1000 Ml Inj (Ns 1000 M (03/03/17 22:30) Iohexol 350 Inj (Omnipaque 350 Inj) (03/03/17 22:45) Sodium Chlor 0.9% 1000 Ml Inj (Ns 1000 M (03/03/17 23:15) Ed Discharge Order (03/03/17 23:48) Labs Laboratory Tests Test 03/03/17 21:30 03/03/17 23:40 White Blood Count 6.4 TH/MM3 Red Blood Count 4.51 MIL/MM3 Hemoglobin 12.5 GM/DL Hematocrit 37.9 % Mean Corpuscular Volume 83.9 FL Mean Corpuscular Hemoglobin 27.6 PG Mean Corpuscular Hemoglobin Concent 32.9 % Red Cell Distribution Width 13.9 % Platelet Count 121 TH/MM3 Mean Platelet Volume 9.1 FL Neutrophils (%) (Auto) 63.3 % Lymphocytes (%) (Auto) 21.4 % Monocytes (%) (Auto) 14.8 % Eosinophils (%) (Auto) 0.3 % Basophils (%) (Auto) 0.2 % Neutrophils # (Auto) 4.1 TH/MM3 Lymphocytes # (Auto) 1.4 TH/MM3 Monocytes # (Auto) 0.9 TH/MM3 Eosinophils # (Auto) 0.0 TH/MM3 Basophils # (Auto) 0.0 TH/MM3 CBC Comment DIFF FINAL Differential Comment Blood Urea Nitrogen 8 MG/DL Creatinine 0.83 MG/DL Random Glucose 107 MG/DL Total Protein 7.3 GM/DL Albumin 3.8 GM/DL Calcium Level 9.3 MG/DL Alkaline Phosphatase 63 U/L Aspartate Amino Transf (AST/SGOT) 14 U/L Alanine Aminotransferase (ALT/SGPT) 17 U/L Total Bilirubin 0.5 MG/DL Sodium Level 140 MEQ/L Potassium Level 3.0 MEQ/L Chloride Level 105 MEQ/L Carbon Dioxide Level 24.5 MEQ/L Anion Gap 11 MEQ/L Estimat Glomerular Filtration Rate 68 ML/MIN Lipase 207 U/L Urine pH 6.5 Urine Protein NEG mg/dL Urine Glucose (UA) NEG mg/dL Urine Ketones NEG mg/dL Urine Occult Blood NEG Urine Nitrite NEG Urine Bilirubin NEG Urine Leukocyte Esterase NEG MDM Medical Decision Making Medical Screen Exam Complete: Yes Emergency Medical Condition: Yes Medical Record Reviewed: Yes Interpretation(s) The CBC is normal. The complete metabolic profile shows a potassium of 3.0 but is otherwise unremarkable. The lipase is normal. The CT scan of the abdomen/ pelvis shows no acute finding to explain the patient's symptoms. There is severe atherosclerotic disease with a take and questionable high-grade narrowing of the proximal superior mesenteric artery. Differential Diagnosis Ulcer pain, pancreatitis, esophageal stricture, colitis, electrolyte disorder, dehydration Narrative Course The patient appears to have ulcer pain/esophageal irritation. She may have an esophageal stricture. Nevertheless, the patient has been able to handle clear liquids here and can drink clear liquids until Tuesday when she sees Dr. Valverde. She is given Percocet 5 for pain and Zofran for nausea should either occur. She is comfortable at this time. Additional Instructions: Continue to hydrate herself with clear liquids like Gatorade, water and crackers and popsicles. They do make Pedialyte popsicles. Do not miss the appointment Tuesday with Dr. Valverde. Med/Other Pt SpecificInfo: Prescription(s) given Scripts Ondansetron (Zofran) 4 Mg Tab 4 MG PO Q6HR Y for NAUSEA OR VOMITING, #20 TAB 0 Refills Prov: Sonido Bennett MD 03/03/17 Oxycodone-Acetaminophen (Percocet) 5-325 mg Tab 1 TAB PO Q6H Y for PAIN, #20 TAB 0 Refills Prov: Sonido Bennett MD 03/03/17 Disposition: 01 DISCHARGE HOME Condition: Stable Sonido Bennett MD Mar 03, 2017 21:53
[2017-03-03] MEDS ORDERED: CHOL1TAB29 PO (21:55)
[2017-03-03] MEDS ORDERED: ASPI-516 CHEW (21:55)
[2017-03-03] MEDS ORDERED: MULT1TAB59 PO (21:55)
[2017-03-03] MEDS ORDERED: CINN500C2 PO (21:55)
[2017-03-03 22:01] LABS: AUTOMATED NEUTROPHIL # 4.1 TH/MM3 (1.8-7.7); BASOPHIL % 0.2 % (0.0-2.0); EOSINOPHIL % 0.3 % (0.0-4.0); HEMATOCRIT 37.9 % (35.0-46.0); HEMO FLAGS DIFF FINAL; LYMPH % 21.4 % (9.0-44.0); LYMPHOCYTE # 1.4 TH/MM3 (1.0-4.8); MEAN CELL VOLUME 83.9 FL (80.0-100.0); MEAN CORPUSCULAR HEMOGLOBIN 27.6 PG (27.0-34.0); MEAN CORPUSCULAR HGB CONC 32.9 % (32.0-36.0); MONO % 14.8 % (0.0-8.0); NEUT % 63.3 % (16.0-70.0); PLATELET COUNT 121 TH/MM3 (150-450); RED BLOOD COUNT 4.51 MIL/MM3 (4.00-5.30); RED CELL DISTRIBUTION WIDTH 13.9 % (11.6-17.2); WHITE BLOOD COUNT 6.4 TH/MM3 (4.0-11.0)
[2017-03-03 22:07] LABS: CHLORIDE 105 MEQ/L (98-107); SODIUM (NA) 140 MEQ/L (136-145)
[2017-03-03 22:11] LABS: ANION GAP 11 MEQ/L (5-15); BICARBONATE 24.5 MEQ/L (21.0-32.0); BLOOD UREA NITROGEN 8 MG/DL (7-18)
[2017-03-03 22:13] LABS: GLOMERULAR FILTRATION RATE 68 ML/MIN (>89)
[2017-03-03 22:14] LABS: ALT (GPT) 17 U/L (10-53)
[2017-03-03 22:15] LABS: AST (GOT) 14 U/L (15-37)
[2017-03-03 22:16] LABS: TOTAL BILIRUBIN ADULT 0.5 MG/DL (0.2-1.0)
[2017-03-03 22:17] VITALS: O2SAT 100
[2017-03-03 22:17] LABS: ALKALINE PHOSPHATASE 63 U/L (45-117)
[2017-03-03] MEDS ORDERED: POTASSIUM CHLORIDE 20 MEQ CONTROLLED RELEASE TAB PO ONE (22:30)
[2017-03-03] MEDS ORDERED: IOHEXOL 350 MG/ML 10 ML VIAL (for RAD DIAG) IVCONTRAST ONE (22:45)
[2017-03-03 23:12] VITALS: BP 149/51; PULSE 67; RESP 18; O2SAT 100
--- NOTE | 2017-03-03 23:12 | RADRPT ---
EXAM DATE/TIME: 03/03/2017 22:45 [facility] COMPARISON: No previous studies available for comparison. INDICATIONS : Stomach pain since July, worse today. History of gastroparesis. IV CONTRAST: 96 cc Omnipaque 350 (iohexol) IV ORAL CONTRAST: No oral contrast ingested. RADIATION DOSE: 4.97 CTDIvol (mGy) MEDICAL HISTORY : Hypertension. Ulcers. Cardiovascular diseasegastroparesis SURGICAL HISTORY : Cholecystectomy. section.Coronary artery stent. ENCOUNTER: Initial ACUITY: 7 - 11 months PAIN SCALE: 8/10 LOCATION: middle abdomen TECHNIQUE: Volumetric scanning of the abdomen and pelvis was performed. Using automated exposure control and ad justment of the mA and/or kV according to patient size, radiation dose was kept as low as reasonably achievable to obtain optimal diagnostic quality images. DICOM format image data is available electro nically for review and comparison. FINDINGS: LOWER LUNGS: The visualized lower lungs are clear. LIVER: Homogeneous density without lesion. Patient is post cholecystectomy clips in the gallbladder fossa. There is mild enlargement of the central intrahepatic bile ducts. Common bile duct is within normal l imits. SPLEEN: Normal size without lesion. There is a focal calcification. PANCREAS: Within normal limits. KIDNEYS: Normal in size and shape. There is no mass, stone or hydronephrosis. There is a 1.2 cm cyst in the r ight upper pole kidney. An incidental 5 mm low-density lesion is present in the left mid and lower po le kidney and these are too small to characterize. ADRENAL GLANDS: Within normal limits. VASCULAR: There is no aortic aneurysm. There is severe atherosclerotic disease with ectasia. There is possible severe narrowing of the proximal superior mesenteric artery. BOWEL/MESENTERY: The stomach, small bowel, and colon demonstrate no acute abnormality. There is no free intraperitone al air or fluid. ABDOMINAL WALL: Within normal limits. RETROPERITONEUM: There is no lymphadenopathy. BLADDER: Not well-visualized secondary to beam hardening artifact. However, no abnormality is appreciated. REPRODUCTIVE: Not well-visualized secondary to beam hardening artifact. However, no abnormality is appreciated. INGUINAL: There is no lymphadenopathy or hernia. MUSCULOSKELETAL: There are degenerative changes of the lumbar spine with severe facet arthrosis. Left hip arthroplasty hardware is present. CONCLUSION: 1. No acute finding is identified to explain the clinical symptoms. 2. There is severe atherosclerotic disease with ectasia. There is questionable high-grade narrowing o f the proximal superior mesenteric artery. Danish Alvares MD on March 03, 2017 at 23:05 Board Certified Radiologist. This report was verified electronically.
[2017-03-03 23:45] LABS: BLOOD, URINE NEG (NEG); GLUCOSE,URINE NEG (NEG); KETONE, URINE NEG (NEG); NITRITE,URINE NEG (NEG); PH, URINE 6.5 (5.0-8.5)
[2017-03-03 23:46] LABS: URINE COLOR YELLOW (YELLW/STRAW)
[2017-03-03 23:50] LABS: BACTERIA, URINE OCC /hpf; COMMENT (UR) CULT NOT INDICATED; CULTURE IF INDICATED CULT NOT INDICATED; RBC, URINE 0-2 /hpf (0-3); WBC, URINE 0-2 /hpf (0-5)
[2017-03-03] MEDS ORDERED: PERC5TAB12 PO (23:54)
[2017-03-03] MEDS ORDERED: ZOFR4TAB PO (23:54)
[2017-03-04 00:15] VITALS: BP 137/50; PULSE 78; RESP 16; TEMP 98.1; O2SAT 100
== END 2017-03-04 00:29 | disposition home or self-care (01) ==
LOC: PHED 20:34
DX: K20.9 Esophagitis, unspecified (principal); E78.00 Pure hypercholesterolemia, unspecified; I10 Essential (primary) hypertension; F17.210 Nicotine dependence, cigarettes, uncomplicated
CPT/HCPCS: 74177; 80053; 81001; 83690; 85025; 96361; 96374; 96375; 99285; J2270; J2405; J7030; Q9967

== ENCOUNTER 2017-04-03 21:06 | Emergency (ER) | payer OTHER ==
[~2017-04-03] VITALS: Ht 154.9 cm; Wt 46.8 kg
[~2017-04-03 21:06] MED LIST changes: +ASPI-516 CHEW; -ASPI1TAB69 PO; -B COTAB6 PO; -CHOL1CHW5 PO; +CHOL1TAB29 PO; -CINN500C PO; +CINN500C2 PO; +MULT1TAB59 PO; +PERC5TAB12 PO; +ZOFR4TAB PO
[2017-04-03 21:11] VITALS: BP 116/57; PULSE 108; RESP 20; TEMP 98.8; O2SAT 92
--- NOTE | 2017-04-03 21:39 | PD ---
HPI Chief Complaint: Abdominal Pain Time Seen by Provider: 21:32 Travel History International Travel<30 days: No Contact w/Intl Traveler<30days: No Traveled to known affect area: No History of Present Illness HPI The patient was seen and examined in the presence of the nurse. This patient complains of decreased urine output and constipation. Symptoms severity is moderate. She urinated last 13 hours ago. She has history of mesenteric ischemia and has appointment with surgeon on Tuesday. She has lost a lot of weight in the last year. She has taken some sporadic narcotics. She normally has a bowel movement every 3-4 days but has not had one for a week. No alleviating factors. I suspect her constipation is exacerbated by narcotic use. PFSH Past Medical History Arthritis: Yes Depression: No Cancer: No Cardiovascular Problems: Yes (CAD, MULTIPLE CARDIAC STENTS) High Cholesterol: Yes Chemotherapy: No Cerebrovascular Accident: Yes (TIA 2014) Diabetes: No Diminished Hearing: No Endocrine: Yes Gastrointestinal Disorders: Yes (Gastro peresis, Mesentery artery syndrome) Genitourinary: No Hepatitis: No Hiatal Hernia: No Hypertension: Yes Immune Disorder: No Musculoskeletal: Yes (ARTHRITIS) Neurologic: Yes (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) Psychiatric: No Reproductive: Yes (GENITAL WARTS) Respiratory: No (SMOKES 1 PPD) Radiation Therapy: No Thyroid Disease: Yes (HYPOTHYRODISM) Ulcer: Yes (STOMACH 2016) Past Surgical History Abdominal Surgery: Yes (CHOLECYSTECTOMY ) AICD: No Body Medical Devices: CARDIAC STENTS X 6 Cardiac Surgery: Yes (HEART CATH - 6 CARDIAC STENTS) Gynecologic Surgery: Yes (C SECTION 1976) Joint Replacement: Yes (LEFT HIP ) Pacemaker: No Other Surgery: Yes Social History Alcohol Use: No Tobacco Use: Yes (1/2 pack per day) Substance Use: No Allergies-Medications (Allergen,Severity, Reaction): Coded Allergies: erythromycin base (Unverified Adverse Reaction, Severe, LESIONS IN COLON, 04/03/17) codeine (Unverified Adverse Reaction, Intermediate, HEART FLUTTERS, ) Reported Meds & Prescriptions Reported Meds & Active Scripts Active Percocet (Oxycodone-Acetaminophen) 5-325 mg Tab 1 Tab PO Q6H PRN Reported Centrum Women Tablet (Multivitamin/Iron/Folic Acid) 18 Mg Iron-400 Mcg Tablet 1 Tab PO DAILY Eql Cinnamon (Cinnamon) 500 Mg Cap 1,000 Mg PO HS Aspirin 81 Mg Chew 81 Mg CHEW DAILY Sucralfate 1 Gm Tab 1 Gm PO QID on empty stomach Biotin Maximum Strength (Biotin) 10,000 Mcg Tab 10,000 Mcg PO DAILY Plavix (Clopidogrel Bisulfate) 75 Mg Tab 75 Mg PO DAILY Synthroid (Levothyroxine Sodium) 25 Mcg Tab 25 Mcg PO DAILY Losartan (Losartan Potassium) 50 Mg Tab 25 Mg PO DAILY Metoprolol Tartrate 25 Mg Tab 25 Mg PO HS Atorvastatin (Atorvastatin Calcium) 40 Mg Tab 40 Mg PO HS Review of Systems General / Constitutional: Positive: Weight Loss, No: Fever Eyes: No: Visual changes HENT: No: Headaches Cardiovascular: No: Chest Pain or Discomfort Respiratory: No: Shortness of Breath Gastrointestinal: Positive: Constipation, No: Abdominal Pain Genitourinary: Positive: Decreased Urinary Output, No: Dysuria Musculoskeletal: No: Pain Skin: No Rash Neurologic: Positive: Weakness Psychiatric: Positive: Anxiety, No: Depression Endocrine: No: Polydipsia Hematologic/Lymphatic: No: Easy Bruising Physical Exam Narrative GENERAL: Thin elderly well-developed patient in no apparent distress. SKIN: Focused skin assessment reveals no rash and nodules. Skin is Warm and dry. HEAD: Atraumatic. Normocephalic. EYES: Pupils equal and round. No scleral icterus. No injection or drainage. ENT: No nasal bleeding or discharge. Mucous membranes pink and moist. NECK: Trachea midline. No JVD. CARDIOVASCULAR: Regular rate and rhythm. No murmur appreciated. RESPIRATORY: No accessory muscle use. Clear to auscultation. Breath sounds equal bilaterally. GASTROINTESTINAL: Abdomen soft, non-tender, nondistended. Hepatic and splenic margins not palpable. MUSCULOSKELETAL: No obvious deformities. No clubbing. No cyanosis. No edema. NEUROLOGICAL: Awake and alert. No obvious cranial nerve deficits. Motor grossly within normal limits. Normal speech. PSYCHIATRIC: Appropriate mood and affect; insight and judgment normal. Rectal: Normal tone, no mass, no impaction, scant stool in the vault. Patient has profuse genital warts Data Data Last Documented VS Vital Signs Date Time Temp Pulse Resp B/P (MAP) Pulse Ox O2 Delivery O2 Flow Rate FiO2 04/03/17 21:11 98.8 108 20 116/57 (76) 92 Orders Orders Urinary Catheter Insert/Apply (04/03/17 21:32) Complete Blood Count With Diff (04/03/17 21:32) Basic Metabolic Panel (Bmp) (04/03/17 21:32) Iv Access Insert/Monitor (04/03/17 21:32) Sodium Chlorid 0.9% 500 Ml Inj (Ns 500 M (04/03/17 21:45) Urinalysis - C+S If Indicated (04/03/17 22:21) Labs Laboratory Tests Test 04/03/17 21:55 04/03/17 22:20 White Blood Count 17.1 TH/MM3 Red Blood Count 4.40 MIL/MM3 Hemoglobin 12.0 GM/DL Hematocrit 36.9 % Mean Corpuscular Volume 83.7 FL Mean Corpuscular Hemoglobin 27.2 PG Mean Corpuscular Hemoglobin Concent 32.5 % Red Cell Distribution Width 13.8 % Platelet Count 110 TH/MM3 Mean Platelet Volume 9.0 FL Neutrophils (%) (Auto) 75.6 % Lymphocytes (%) (Auto) 6.4 % Monocytes (%) (Auto) 15.9 % Eosinophils (%) (Auto) 0.0 % Basophils (%) (Auto) 2.1 % Neutrophils # (Auto) 12.9 TH/MM3 Lymphocytes # (Auto) 1.1 TH/MM3 Monocytes # (Auto) 2.7 TH/MM3 Eosinophils # (Auto) 0.0 TH/MM3 Basophils # (Auto) 0.4 TH/MM3 CBC Comment AUTO DIFF Differential Total Cells Counted 100 Neutrophils % (Manual) 68 % Band Neutrophils % 7 % Lymphocytes % 13 % Monocytes % 12 % Neutrophils # (Manual) 12.8 TH/MM3 Differential Comment FINAL DIFF MANUAL Platelet Estimate LOW Platelet Morphology Comment NORMAL Red Cell Morphology Comment NORMAL Blood Urea Nitrogen 12 MG/DL Creatinine 0.86 MG/DL Random Glucose 101 MG/DL Calcium Level 8.4 MG/DL Sodium Level 134 MEQ/L Potassium Level 3.6 MEQ/L Chloride Level 102 MEQ/L Carbon Dioxide Level 23.3 MEQ/L Anion Gap 9 MEQ/L Estimat Glomerular Filtration Rate 65 ML/MIN Urine Collection Type CATH Urine Color YELLOW Urine Turbidity MOD Urine pH 6.0 Urine Specific [place] 1.023 Urine Protein 300 OR GREATER mg/dL Urine Glucose (UA) NEG mg/dL Urine Ketones TRACE mg/dL Urine Occult Blood TRACE Urine Nitrite NEG Urine Bilirubin NEG Urine Leukocyte Esterase NEG Urine RBC 4-9 /hpf Urine WBC 0-2 /hpf Urine Squamous Epithelial Cells 0-5 /hpf Urine Amorphous Sediment LARGE Urine Hyaline Casts 3-5 /lpf Urine Granular Casts 3-5 /lpf Urine Fine Granular Casts 6-9 /lpf Urine Coarse Granular Casts /lpf Urine Mucus MANY /lpf Microscopic Urinalysis Comment CATH-CULT NOT IND MDM Medical Decision Making Medical Screen Exam Complete: Yes Emergency Medical Condition: Yes Medical Record Reviewed: Yes Differential Diagnosis Renal failure, dehydration, urinary retention, medication side effect Narrative Course I have reviewed the patient's electronic medical record. IV placed CBC shows some leukocytosis with normal hemoglobin. Does not look septic or toxic. She is afebrile Metabolic profile is normal including normal creatinine Urinalysis shows no sign of infection culture not indicated Patient's abdomen is soft and benign and nontender Villatoro catheter placed to assess for urinary retention I gave her 500 cc of normal saline IV Stable for outpatient follow-up Diagnosis Primary Impression: Generalized weakness Additional Impression: Constipation Qualified Codes: K59.00 - Constipation, unspecified Additional Instructions: The patient was advised to follow up with their physician and return if they worsen. Med/Other Pt SpecificInfo: Other Disposition: DISCHARGE HOME Condition: Stable Moises Barrientos MD Apr 03, 2017 21:39
[2017-04-03] MEDS ORDERED: SODIUM CHLORID 0.9% 500 ML INJ 500 ML IV SCH (21:45)
[2017-04-03 22:04] LABS: AUTOMATED NEUTROPHIL # 12.9 TH/MM3 (1.8-7.7); BASOPHIL # 0.4 TH/MM3 (0-0.2); BASOPHIL % 2.1 % (0.0-2.0); HEMATOCRIT 36.9 % (35.0-46.0); LYMPH % 6.4 % (9.0-44.0); LYMPHOCYTE # 1.1 TH/MM3 (1.0-4.8); MEAN CELL VOLUME 83.7 FL (80.0-100.0); MEAN CORPUSCULAR HEMOGLOBIN 27.2 PG (27.0-34.0); MEAN CORPUSCULAR HGB CONC 32.5 % (32.0-36.0); MONO % 15.9 % (0.0-8.0); MONOCYTE # 2.7 TH/MM3 (0-0.9); NEUT % 75.6 % (16.0-70.0); PLATELET COUNT 110 TH/MM3 (150-450); RED CELL DISTRIBUTION WIDTH 13.8 % (11.6-17.2); WHITE BLOOD COUNT 17.1 TH/MM3 (4.0-11.0)
[2017-04-03 22:15] LABS: BICARBONATE 23.3 MEQ/L (21.0-32.0); CALCIUM 8.4 MG/DL (8.5-10.1)
[2017-04-03 22:19] LABS: CREATININE 0.86 MG/DL (0.50-1.00)
[2017-04-03 22:27] LABS: BILIRUBIN, URINE NEG (NEG); GLUCOSE,URINE NEG (NEG); KETONE, URINE TRACE mg/dL (NEG); NITRITE,URINE NEG (NEG); URINE LEUKOCYTE ESTERASE NEG (NEG)
[2017-04-03 22:32] LABS: BANDS 7 % (0-6); LYMPHOCYTES 13 % (9-44); MONOCYTES 12 % (0-8); NEUTROPHIL # MANUAL DIFF 12.8 TH/MM3 (1.8-7.7); POLYS (SEG NEUTROPHILS) 68 % (16-70)
[2017-04-03 22:44] LABS: BLOOD, URINE TRACE (NEG); URINE COLOR YELLOW (YELLW/STRAW)
[2017-04-03 22:45] LABS: MUCUS URINE MANY /lpf (OCC)
[2017-04-03 22:48] LABS: AMORPHOUS SEDIMENT, URINE LARGE; SQUAMOUS EPITHELIAL CELL URINE 0-5 /hpf (0-5); WBC, URINE 0-2 /hpf (0-5)
[2017-04-03 23:12] VITALS: BP 135/75; PULSE 88; RESP 18; O2SAT 98
== END 2017-04-03 23:13 | disposition home or self-care (01) ==
LOC: PHED 21:06
DX: R53.1 Weakness (principal); K59.00 Constipation, unspecified; M19.90 Unspecified osteoarthritis, unspecified site; I25.10 Atherosclerotic heart disease of native coronary artery without angina pectoris; E78.00 Pure hypercholesterolemia, unspecified; I10 Essential (primary) hypertension; F17.210 Nicotine dependence, cigarettes, uncomplicated; E03.9 Hypothyroidism, unspecified; Z79.82 Long term (current) use of aspirin; Z86.73 Personal history of transient ischemic attack (TIA), and cerebral infarction without residual deficits; Z95.5 Presence of coronary angioplasty implant and graft
CPT/HCPCS: 51702; 80048; 81001; 85007; 85027; 99283; J7040

== ENCOUNTER → 2017-04-12 | Outpatient (CLI) | payer MEDICARE ==
[~2017-04-12] MED LIST changes: -CHOL1TAB29 PO; +COQ-30CA2; -COQ1200C3 PO; -FISH500C PO; -GLUC500C5 PO; +LACT1CAP19; -LACTCAP8 PO; -VARE1PAK5 PO; -VITA10004 PO; -ZOFR4TAB PO
[2017-04-12 12:47] LABS: AUTOMATED NEUTROPHIL # 2.7 TH/MM3 (1.8-7.7); BASOPHIL % 0.2 % (0.0-2.0); EOSINOPHIL % 0.2 % (0.0-4.0); HEMATOCRIT 37.4 % (35.0-46.0); HEMOGLOBIN 12.9 GM/DL (11.6-15.3); LYMPH % 29.5 % (9.0-44.0); LYMPHOCYTE # 1.5 TH/MM3 (1.0-4.8); MEAN CELL VOLUME 82.9 FL (80.0-100.0); MEAN CORPUSCULAR HEMOGLOBIN 28.6 PG (27.0-34.0); MEAN CORPUSCULAR HGB CONC 34.6 % (32.0-36.0); MEAN PLATELET VOLUME 9.5 FL (7.0-11.0); MONO % 15.8 % (0.0-8.0); MONOCYTE # 0.8 TH/MM3 (0-0.9); NEUT % 54.3 % (16.0-70.0); PLATELET COUNT 166 TH/MM3 (150-450); RED BLOOD COUNT 4.51 MIL/MM3 (4.00-5.30); RED CELL DISTRIBUTION WIDTH 14.1 % (11.6-17.2)
[2017-04-12 12:56] LABS: INTERNATIONAL NORMALIZED RATIO 1.1 RATIO; PROTHROMBIN TIME - PATIENT 11.3 SEC (9.8-11.6)
[2017-04-12 13:01] LABS: BILIRUBIN, URINE NEG (NEG); BLOOD, URINE NEG (NEG); GLUCOSE,URINE NEG (NEG); KETONE, URINE NEG (NEG); NITRITE,URINE NEG (NEG); SQUAMOUS EPITHELIAL CELL URINE 2 /hpf (0-5); URINE COLOR LIGHT-YELLOW (YELLW/STRAW); URINE LEUKOCYTE ESTERASE NEG (NEG)
[2017-04-12 13:01] LABS: BICARBONATE 28.5 MEQ/L (21.0-32.0); CALCIUM 9.5 MG/DL (8.5-10.1); CREATININE 0.85 MG/DL (0.50-1.00)
--- NOTE | 2017-04-12 13:01 | RADRPT ---
EXAM DATE/TIME: 04/12/2017 12:39 [facility] COMPARISON: No previous studies available for comparison. INDICATIONS : Evaluate for pneumonia, pneumothorax or communicable disease. Pre op for mesenteric artery bypass. MEDICAL HISTORY : Hypertension. Hypothyroidism. CAD. SURGICAL HISTORY : Carotid stent. Carotid endarterectomy. Patch angioplasty. ENCOUNTER: Initial ACUITY: 1 day PAIN SCORE: 0/10 LOCATION: chest FINDINGS: There is a calcified granuloma in the right middle lobe. Coronary stent present. No focal consolidati on or effusion. Heart size normal. Mildly tortuous aorta. Stent also present in superior mediastinum. Surgical clip right upper quadrant. CONCLUSION: 1. No active disease. Calcified granuloma right middle lobe. Kye Santiago MD on April 12, 2017 at 12:57 Board Certified Radiologist. This report was verified electronically.
--- NOTE | 2017-04-13 22:13 | EKG ---
Date Performed: 04/12/2017 Time Performed: 12:23:52 PTAGE: 71 years EKG: Sinus rhythm . Leftward axis rSr'(V1) - probable normal variant Septal T wave changes are nonspecific Borderline E CG PREVIOUS TRACING : 08/14/2014 11.38 Compared to prior tracing no significant change DOCTOR: Kaern Almanzar Interpretating Date/Time 04/13/2017 22:12:47
== END ==
LOC: CPRE 11:18
PROVIDERS: ATTEND Surgery
DX: Z01.812 Encounter for preprocedural laboratory examination (principal); Z01.811 Encounter for preprocedural respiratory examination; Z01.810 Encounter for preprocedural cardiovascular examination; K55.1 Chronic vascular disorders of intestine
CPT/HCPCS: 36415; 71046; 80048; 81001; 85025; 85610; 85730; 93005

== ENCOUNTER 2017-04-18 06:05 | Inpatient (IN) | payer MEDICARE ==
[~2017-04-18] VITALS: Ht 154.9 cm; Wt 50.0 kg
[~2017-04-18 06:05] MED LIST changes: -BIOT1TAB2 PO; -COQ-30CA2; -LACT1CAP19
[2017-04-18] MEDS ORDERED: LACT1CAP19 (07:11)
[2017-04-18] MEDS ORDERED: COQ-30CA2 (07:11)
[2017-04-18] MEDS ORDERED: METOPROLOL TARTRATE 25 MG TAB PO PRN (07:15)
[2017-04-18] MEDS ORDERED: LACTATED RINGER'S 1000 ML IV PRN (07:15)
[2017-04-18] MEDS ORDERED: POVIDONE IODINE 5% (ANTISEPSIS KIT) 4 APPLICATIONS EACH NARE PRN (07:15)
[2017-04-18] MEDS ORDERED: CHLORHEXIDINE GLUCONATE 2 % 1 PACK (2 CLOTHS) TOPICAL PRN (07:15)
[2017-04-18] MEDS ORDERED: SODIUM CHLORID 0.9% 500 ML IV PRN (07:15)
[2017-04-18] MEDS ORDERED: PROTAMINE SULFATE 50 MG/5 ML VIAL ONE (07:22)
[2017-04-18] MEDS ORDERED: HEPARIN SODIUM - IV 10,000 UNITS/10 ML VIAL ONE (07:22)
[2017-04-18] MEDS ORDERED: THROMBIN (TOPICAL) 20,000 UNIT SPRAY KIT ONE (07:22)
--- NOTE | 2017-04-18 07:33 | PD.VS.PN ---
Pre-operative Note Pre-operative diagnosis: chronic mesenteric ischemia Planned procedure: Mesenteric bypass Interval History: Pt has persistent abdominal pain with eating. + weight loss. No new symptoms that would preclude surgery. Labs: Hct 37 plt 166 cr 0.8 INR 1.1 Blood: T&C 2U PRBC T&C 2U FFP Imaging: CTA reviewed Orders: NPO Ancef 1g IV OCTOR Post-operative destination: [facility] Operative site marked: No (abdominal incision) Consent: Informed consent has been obtained from Estella Sifuentes. I have explained the procedure in detail and discussed the risks, benefits, and potential complications. All questions have been answered. Patient contact information: Daughter [phone] Simone Levy MD Apr 18, 2017 07:33
[2017-04-18] MEDS ORDERED: ACETAMINOPHEN 1000 MG/100 ML 100 ML IV ONE (07:45)
[2017-04-18] MEDS ORDERED: MIDAZOLAM HCL 2 MG/2 ML VIAL ONE (07:45)
[2017-04-18] MEDS ORDERED: FAMOTIDINE 20 MG/2 ML VIAL ONE (07:45)
[2017-04-18] MEDS ORDERED: HEPARIN SODIUM - SQ 10,000 UNITS/ML VIAL ONE (08:39)
[2017-04-18] MEDS ORDERED: ceFAZolin INJ 1,000 MG VIAL IV ONE ×2 (08:43→12:00)
--- NOTE | 2017-04-18 11:35 | HHI.PR ---
cc: Simone Levy MD; Rohit Millan MD; Leeanne Peng MD Immediate Post Op Note Procedure Date: Apr 18, 2017 Pre Op Diagnosis: chronic mesenteric ischemia Post Op Diagnosis: chronic mesenteric ischemia Surgeon: Simone Levy Open Tenter Operator(s): Sola Valentin Procedure: Aorto-SMA bypass (8mm Dacron) Findings: 2mm hepatic artery palpable SMA pulse after bypass, strong Doppler signals at antimesenteric border Additional Information: 20 minute supraceliac X-clamp Complications: none Specimen(s) removed: none Estimated blood loss: 250mL Anesthesia: General Drains: None Fluids: 2800mL X'oid; 2U FFP IVF Urinary Output (mLs): 360 Patient to: [facility] Patient Condition: Good Implant/Devices: SEE IMPLANT LOG (if applicable) Date/Time of Procedure: SEE SURGICAL CARE RECORD Simone Levy MD Apr 18, 2017 11:34
[2017-04-18] MEDS ORDERED: NALOXONE HCL 0.4 MG/ML AMP IV PUSH PRN (11:45)
[2017-04-18] MEDS ORDERED: GLYCOPYRROLATE 1 MG/5 ML SYRINGE IV PUSH ONE (12:00)
[2017-04-18] MEDS ORDERED: DEXAMETHASONE SOD PHOS 4 MG/ML VIAL IV ONE (12:00)
[2017-04-18] MEDS ORDERED: LIDOCAINE HCL 1% PF 5 ML SYRINGE OTHER ONE (12:00)
[2017-04-18] MEDS ORDERED: ePHEDrine/NS 25 MG/5 ML SYRINGE IV ONE (12:00)
[2017-04-18] MEDS ORDERED: NEOSTIGMINE 5 MG/5 ML SYRINGE IV PUSH ONE (12:00)
[2017-04-18] MEDS ORDERED: ONDANSETRON HCL 4 MG/2 ML VIAL IV PUSH ONE (12:00)
[2017-04-18] MEDS ORDERED: [UNRECOGNIZED DRUG - OTHER] ONE (12:00)
[2017-04-18] MEDS ORDERED: PROPOFOL 200 MG/20 ML AMP IV ONE (12:00)
[2017-04-18] MEDS ORDERED: ESMOLOL HCL 100 MG/10 ML VIAL IV ONE (12:00)
[2017-04-18] MEDS ORDERED: PHENYLEPH/NS 1000 MCG/10 ML SYR IV ONE (12:00)
[2017-04-18] MEDS ORDERED: ROCURONIUM INJ 50 MG/5 ML SYRINGE IV PUSH ONE (12:00)
[2017-04-18] MEDS: MORPHINE SULFATE 30 MG/30 ML PCA IV SCH ×2 (12:54→18:23)
[2017-04-18] MEDS: ENOXAPARIN SODIUM 30 MG/0.3 ML SYRINGE SQ SCH (12:55)
[2017-04-18] MEDS: D5-1/2 NS + KCL 20 MEQ INJ 1,000 ML IV SCH (12:56)
[2017-04-18 13:00] VITALS: BP_SYST 146; BP_SYST 164; BP_DIAS 64; PULSE 78; RESP 16; TEMP 97.8; O2SAT 100
[2017-04-18] MEDS ORDERED: ONDANSETRON HCL 4 MG/2 ML VIAL IV PUSH PRN (13:00)
[2017-04-18 13:03] LABS: HEMATOCRIT 26.3 % (35.0-46.0); HEMOGLOBIN 9.2 GM/DL (11.6-15.3); MEAN CELL VOLUME 82.8 FL (80.0-100.0); MEAN CORPUSCULAR HEMOGLOBIN 29.1 PG (27.0-34.0); MEAN CORPUSCULAR HGB CONC 35.1 % (32.0-36.0); MEAN PLATELET VOLUME 8.8 FL (7.0-11.0); PLATELET COUNT 92 TH/MM3 (150-450); RED BLOOD COUNT 3.18 MIL/MM3 (4.00-5.30); RED CELL DISTRIBUTION WIDTH 14.1 % (11.6-17.2); WHITE BLOOD COUNT 3.9 TH/MM3 (4.0-11.0)
[2017-04-18 13:30] LABS: CALCIUM 8.1 MG/DL (8.5-10.1); CREATININE 0.69 MG/DL (0.50-1.00)
[2017-04-18] MEDS: PCA - TOTAL MG MORPHINE DELIVERED PER SHIFT SCH ×2 (13:51→22:00)
--- NOTE | 2017-04-18 14:31 | RADRPT ---
EXAM DATE/TIME: 04/18/2017 13:17 [facility] COMPARISON: CHEST PA & LAT, April 12, 2017, 12:39. INDICATIONS : Post central line placement. MEDICAL HISTORY : Hypertension. Hypothyroidism. CAD SURGICAL HISTORY : Carotid stent. Carotid endarterectomy. Patch angioplasty ENCOUNTER: Initial ACUITY: 1 day PAIN SCORE: Non-responsive. LOCATION: Bilateral chest FINDINGS: Portable AP view of the chest demonstrates a normal-sized cardiac silhouette. Left subclavian central line tip is at the cavoatrial junction. Nasogastric tube tip extends just beyond the GE junction wit h sentinel hole in the distal esophagus. Lungs are underinflated with stable calcified granuloma in t he right midlung zone. No effusion, consolidation, or pneumothorax is visualized. CONCLUSION: 1. Left subclavian central line distal tip is at the cavoatrial junction. No pneumothorax is visualiz ed. 2. Nasogastric tube distal tip extends just beyond the GE junction and ideally should be advanced sli ghtly. Danish Alvares MD on April 18, 2017 at 14:27 Board Certified Radiologist. This report was verified electronically.
[2017-04-18 15:11] VITALS: BP 158/62; PULSE 80; PULSE 89; RESP 14; TEMP 98; O2SAT 99
[2017-04-18 19:00] VITALS: PULSE 78
[2017-04-18 19:21] VITALS: BP_SYST 110; BP_SYST 119; BP_DIAS 56; BP_DIAS 57; PULSE 69; RESP 17; TEMP 97.8; O2SAT 96
--- NOTE | 2017-04-18 20:15 | PD.CONS ---
[facility] Service Critical Care Medicine Consult Requested By Dr. Levy Reason for Consult medical management of perioperative comorbid conditions Primary Care Physician Aki Resendez MD History of Present Illness This is a 68-year-old female with history of coronary artery disease, peripheral vascular disease who presents for open mesenteric bypass for chronic mesenteric ischemia. She underwent uncomplicated procedure with supraceliac aortic cross-clamp. EBL was estimated to be around 250 mL's. For this she received 2800 mL's crystalloid. She arrives extubated to the CVICU in stable condition. She is arousing from anesthesia, but denies complaints. She does endorse mild abdominal pain which is tolerable to her. ROS otherwise negative. Review of Systems Constitutional: DENIES: Fatigue, Fever, Weight gain, Chills Eyes: DENIES: Blurred vision Respiratory: DENIES: Apneas, Cough, Snoring, Wheezing, Hemoptysis, Sputum production, Shortness of breath Cardiovascular: DENIES: Chest pain, Syncope, Dyspnea on Exertion, PND Gastrointestinal: COMPLAINS OF: Abdominal pain, DENIES: Constipation, Diarrhea , Nausea, Vomiting Neurologic: DENIES: Headache Past Family Social History Allergies: Coded Allergies: erythromycin base (Unverified Adverse Reaction, Severe, LESIONS IN COLON, 04/18/17) codeine (Unverified Adverse Reaction, Intermediate, HEART FLUTTERS, ) Past Medical History CAD hypertension dyslipidemia hypothyroidism carotid artery disease chronic mesenteric ischemia Past Surgical History Right carotid endarterectomy Patch angioplasty 07/02/14 Left hip replacement 05/07/[address] Domingo 2005 Multiple cardiac stents Reported Medications Chantix Continuing Month Warren (Varenicline) 1 Mg Warren 1 Mg PO BIDPC Sucralfate 1 Gm Tab 1 Gm PO QID on empty stomach Pantoprazole (Pantoprazole Sodium) 40 Mg Tab 40 Mg PO DAILY Probiotic (Lactobacillus Acidophilus) 1 Cap Cap 1 Cap PO DAILY Glucosamine (Glucosamine Sulfate) 500 Mg Cap 500 Mg PO DAILY Fish Oil ([place]-3 Fatty Acids) 500 Mg Cap 1 Cap PO DAILY Co Q-10 (Coenzyme Q10 (Ubidecarenone)) 200 Mg Cap 1 Cap PO DAILY Vitamin D3 (Cholecalciferol) 2,000 Unit Chew 2,000 Units PO DAILY Biotin Maximum Strength (Biotin) 10,000 Mcg Tab 10,000 Mcg PO DAILY Plavix (Clopidogrel Bisulfate) 75 Mg Tab 75 Mg PO DAILY Synthroid (Levothyroxine Sodium) 25 Mcg Tab 25 Mcg PO DAILY Losartan (Losartan Potassium) 50 Mg Tab 25 Mg PO DAILY Miralax Powder (Polyethylene Glycol 3350 Powder) 17 Gm Powd 17 Gm PO DIRECTED PRN Mix and dissolve one measuring cap-ful (17 grams) in water or juice. Metoprolol Tartrate 25 Mg Tab 25 Mg PO HS Atorvastatin (Atorvastatin Calcium) 40 Mg Tab 40 Mg PO HS Vitamin B-12 Cr (Cyanocobalamin) 1,000 Mcg Tab 1,000 Mcg PO HS B Complete (B-Complex W/Biotin & Folic Acid) 1 Tab 1 Tab PO DAILY Cinnamon 500 Mg Cap 1,000 Mg PO HS Aspirin 81 Mg Tabdr 81 Mg PO HS Plavix (Clopidogrel Bisulfate) 75 Mg Tab 75 Mg PO DAILY Coq-10 (Coenzyme Q10 (Ubidecarenone)) 150 Mg Cap 1 Cap PO DAILY Glucosamine Chondroitin (Glucosamine-Chondroitin) 1 Cap Cap 1 Cap PO DAILY Vitamin B Complex 1 Tab PO DAILY Losartan Potassium-HCT 100-12.5 1 Tab Tab 1 Tab PO DAILY Aspir-81 (Aspirin) 81 Mg Tab 81 Mg PO HS Multi-Vitamin Daily (Multivitamins) Daily Tab 1 Tab PO DAILY Calcium Citrate + (Multiple Minerals W/ Vitamins) 1 Tab Tab 1 Tab PO DAILY Fish Oil ([place]-3 Fatty Acids) 1,000 Mg Cap 1,000 Mg PO BID Atorvastatin 40 mg (Atorvastatin Calcium) 40 Mg Tab 1 Tab PO HS Synthroid 25 mcg (Levothyroxine Sodium) 25 Mcg Tab 1 Tab PO DAILY Active Ordered Medications See MAR Family History Reviewed and found to be noncontributory to her acute illness Social History +tob, denies etoh, doa. Physical Exam Vital Signs Vital Signs Date Time Temp Pulse Resp B/P (MAP) Pulse Ox O2 Delivery O2 Flow Rate FiO2 04/18/17 18:23 12 04/18/17 15:11 89 04/18/17 15:11 98.0 80 14 158/62 (94) 99 04/18/17 13:51 16 04/18/17 13:00 78 04/18/17 13:00 97.8 78 16 146/64 (91) 100 164/64 (97) 04/18/17 13:00 16 04/18/17 12:54 16 04/18/17 07:20 98.6 56 20 121/50 (73) 100 Physical Exam GENERAL: Elderly female, lying in bed HEENT: Normocephalic. Atraumatic. Pupils equal, round, reactive, conjugate. Mucous membranes are moist NECK: Trachea is midline. There is no JVD. CHEST: Equal chest rise. Nasal cannula oxygen. There is a left subclavian triple-lumen catheter with its site clean, dry, dressing intact CARDIOVASCULAR: Normal rate, regular rhythm. Sinus by telemetry. ABDOMEN: Soft, mildly and appropriately tender to palpation, nondistended. No guarding. Abdominal binder in place. Median laparotomy incision without evidence of bleeding, derma bonded. MUSCULOSKELETAL: Pulses 2+. No peripheral edema. Left radial arterial line in place, site clean and dry. Distal pulses palpable and 2+ radial, DP. Extremities are warm and well-perfused NEUROLOGICAL: RASS 0. CAM -. Follows commands. No focal deficits. Laboratory Laboratory Tests Test 04/18/17 12:45 White Blood Count 3.9 Red Blood Count 3.18 Hemoglobin 9.2 Hematocrit 26.3 Mean Corpuscular Volume 82.8 Mean Corpuscular Hemoglobin 29.1 Mean Corpuscular Hemoglobin Concent 35.1 Red Cell Distribution Width 14.1 Platelet Count 92 Mean Platelet Volume 8.8 Blood Urea Nitrogen 7 Creatinine 0.69 Random Glucose 153 Calcium Level 8.1 Sodium Level 138 Potassium Level 3.4 Chloride Level 102 Carbon Dioxide Level 26.0 Anion Gap 10 Estimat Glomerular Filtration Rate 84 Result Diagram: 04/18/17 1245 04/18/17 1245 Assessment and Plan Assessment and Plan Assessment: 71-year-old female postop day 0 status post laparotomy with aortomesenteric bypass. Agree with monitoring closely in the CVICU. NPO and continue mivf. will likely have ongoing ivf resuscitative needs throughout the early post-operative period. frequent uop monitoring. POD 0 s/p aorto-mesenteric bypass with supraceliac cross-clamp - frequent uop monitoring - strict i/o's - neurovascular checks - mivf - LR 500cc iv x 1 for early post-operative oliguria - trend daily bmp - aggressive pulmonary toilet - wean o2 by nc for goal spo2 > 90% Post-operative pain - GREEN MARKETER - currently adequately controlled. Hyperlipidemia - continue home statin Hypertension - hold home antihypertensives. will restart as needed CAD - hold home beta moreno for now. - hold home plavix Hypothyroidism - continue home synthroid SCDs keep novak, art line, central line today. Dispo: remain in ICU. Critical care medicine will continue to follow along while patient remains in the CVICU. Code Status Full Code Discussed Condition With patient, family, bedside RN, Dr. Cam Millan,Rohit Burnette MD Apr 18, 2017 20:15
[2017-04-18] MEDS: FAMOTIDINE 20 MG/2 ML VIAL IV PUSH SCH (20:43)
[2017-04-18] MEDS: ATORVASTATIN 40 MG TAB PO SCH (20:43)
[2017-04-18 23:27] VITALS: BP_SYST 107; BP_SYST 113; BP_DIAS 44; BP_DIAS 50; PULSE 65; PULSE 67; RESP 15; TEMP 98; O2SAT 96
[2017-04-19] VITALS (8 sets, daily range): BP systolic 92–124; BP diastolic 41–55; PULSE 65–110; RESP 14–18; TEMP 97.9–100.6; O2SAT 92–98
[2017-04-19] MEDS: D5-1/2 NS + KCL 20 MEQ INJ 1,000 ML IV SCH ×3 (03:27→21:07)
[2017-04-19 04:20] LABS: HEMATOCRIT 30.3 % (35.0-46.0); HEMOGLOBIN 10.2 GM/DL (11.6-15.3); MEAN CELL VOLUME 83.5 FL (80.0-100.0); MEAN CORPUSCULAR HGB CONC 33.5 % (32.0-36.0); MEAN PLATELET VOLUME 8.3 FL (7.0-11.0); PLATELET COUNT 96 TH/MM3 (150-450); RED BLOOD COUNT 3.63 MIL/MM3 (4.00-5.30); RED CELL DISTRIBUTION WIDTH 14.5 % (11.6-17.2); WHITE BLOOD COUNT 14.2 TH/MM3 (4.0-11.0)
[2017-04-19 04:48] LABS: BICARBONATE 26.7 MEQ/L (21.0-32.0); CALCIUM 7.6 MG/DL (8.5-10.1); CREATININE 0.62 MG/DL (0.50-1.00)
[2017-04-19] MEDS ORDERED: LACTATED RINGER'S 1000 ML INJ 500 ML IV ONE (05:15)
[2017-04-19] MEDS: PCA - TOTAL MG MORPHINE DELIVERED PER SHIFT SCH ×3 (05:51→22:00)
[2017-04-19] MEDS: LEVOTHYROXINE SODIUM 25 MCG TAB PO SCH (05:52)
[2017-04-19] MEDS ORDERED: HYDROmorphone HCL PF 2 MG/ML VIAL IV PUSH ONE (07:15)
[2017-04-19] MEDS: FAMOTIDINE 20 MG/2 ML VIAL IV PUSH SCH ×2 (07:55→21:06)
--- NOTE | 2017-04-19 08:23 | HHI.CCPN ---
Subjective Remarks/Hospital Course This is a 68-year-old female with history of coronary artery disease, peripheral vascular disease who presents for open mesenteric bypass for chronic mesenteric ischemia. She underwent uncomplicated procedure with supraceliac aortic cross-clamp. EBL was estimated to be around 250 mL's. For this she received 2800 mL's crystalloid. She arrives extubated to the CVICU in stable condition. She is arousing from anesthesia, but denies complaints. She does endorse mild abdominal pain which is tolerable to her. ROS otherwise negative. UO remains marginal, received 250 ml crystalloid boluses. 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 Increase maintenance VF to 120 ml per hour Objective Vital Signs Date Time Temp Pulse Resp B/P (MAP) Pulse Ox O2 Delivery O2 Flow Rate FiO2 04/19/17 07:47 98 21 04/19/17 05:51 15 04/19/17 03:11 68 04/19/17 03:11 97.9 117/50 (72) 124/46 (72) Intake and Output 04/19/17 04/19/17 04/20/17 08:00 16:00 00:00 Intake Total 1599.3 ml Output Total 500 ml Balance 1099.3 ml Result Diagram: 04/19/17 0405 04/19/17 0405 Objective Remarks GENERAL: Elderly female, lying in bed. Mild distress due to pain HEENT: Normocephalic. Atraumatic. Pupils equal, round, reactive, conjugate. Mucous membranes are moist NECK: Trachea is midline. There is no JVD. CHEST: Equal chest rise. Nasal cannula oxygen. There is a left subclavian triple-lumen catheter with its site clean, dry, dressing intact CARDIOVASCULAR: Normal rate, regular rhythm. Sinus by telemetry. ABDOMEN: Soft, mildly and appropriately tender to palpation, nondistended. No guarding. Abdominal binder in place. Median laparotomy incision C/D/I MUSCULOSKELETAL: Pulses 2+. No peripheral edema. Left radial arterial line in place, site clean and dry. Distal pulses palpable and 2+ radial, DP. Extremities are warm and well-perfused NEUROLOGICAL: Follows commands. No focal deficits. A/P Assessment and Plan Assessment: 71-year-old female postop day 1 status post laparotomy with aortomesenteric bypass. Continue monitoring closely in the CVICU. NPO and continue mivf. will likely have ongoing ivf resuscitative needs throughout the early post-operative period. frequent uop monitoring. 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 Hyperlipidemia - continue home statin Hypertension - hold home antihypertensives. borderline hypotensive - Received Additional 500 mL crystalloid bolus for hypotension CAD - holding home beta moreno for now. Holding Plavix Hypothyroidism - continue home Synthroid SCDs keep novak, art line, central line today. Dispo: remain in ICU. Critical care medicine will continue to follow along while patient remains in the CVICU. Level 3 Leeanne Peng MD Apr 19, 2017 08:23
--- NOTE | 2017-04-19 09:40 | PD.VS.PN ---
Subjective POD #: 1 Procedure(s): Aorto-SMA bypass Subjective/Hospital Course intermittent pain last night, controlled with meds + thirsty ENGLE and neuro intact Objective Vitals/I&O Date Time Temp Pulse Resp B/P (MAP) Pulse Ox O2 Delivery O2 Flow Rate FiO2 04/19/17 07:47 98 21 04/19/17 07:00 83 04/19/17 07:00 99.1 80 18 98/47 (64) 95 109/45 (66) 04/19/17 05:51 15 04/19/17 03:11 68 04/19/17 03:11 97.9 65 15 117/50 (72) 96 124/46 (72) 04/18/17 23:27 98.0 65 15 113/50 (71) 96 107/44 (65) 04/18/17 23:27 67 04/18/17 22:00 14 04/18/17 19:21 97.8 69 17 110/56 (74) 96 119/57 (77) 04/18/17 19:00 78 04/18/17 18:23 12 04/18/17 15:11 89 04/18/17 15:11 98.0 80 14 158/62 (94) 99 04/18/17 13:51 16 04/18/17 13:00 78 04/18/17 13:00 97.8 78 16 146/64 (91) 100 164/64 (97) 04/18/17 13:00 16 04/18/17 12:54 16 04/19/17 04/19/17 04/19/17 07:00 15:00 23:00 Intake Total 1599.3 ml Output Total 500 ml Balance 1099.3 ml Exam: alert, oriented ENGLE no distress Incisions: abdominal incision c/d/i Laboratory Laboratory Tests Test 04/18/17 12:45 04/19/17 04:05 White Blood Count 3.9 14.2 Red Blood Count 3.18 3.63 Hemoglobin 9.2 10.2 Hematocrit 26.3 30.3 Mean Corpuscular Volume 82.8 83.5 Mean Corpuscular Hemoglobin 29.1 28.0 Mean Corpuscular Hemoglobin Concent 35.1 33.5 Red Cell Distribution Width 14.1 14.5 Platelet Count 92 96 Mean Platelet Volume 8.8 8.3 Blood Urea Nitrogen 7 10 Creatinine 0.69 0.62 Random Glucose 153 127 Calcium Level 8.1 7.6 Sodium Level 138 138 Potassium Level 3.4 4.0 Chloride Level 102 105 Carbon Dioxide Level 26.0 26.7 Anion Gap 10 6 Estimat Glomerular Filtration Rate 84 95 Assessment and Plan Plan POD#1 Marginal UOP and still in fluid-avid phase of mesenteric reperfusion 1. Increase MIVF and monitor UOP; goal 30cc/h 2. OOB TC/IS 3. Villatoro to remain in for adequate UOP 4. [facility] [facility] [place] [facility] [place] MD Apr 19, 2017 09:40
[2017-04-19] MEDS: ENOXAPARIN SODIUM 30 MG/0.3 ML SYRINGE SQ SCH (12:00)
--- NOTE | 2017-04-19 14:27 | MP ---
cc: REFUGIO LEVY MD DATE OF SURGERY April 18, 2017 PREOPERATIVE DIAGNOSIS Chronic mesenteric ischemia. POSTOPERATIVE DIAGNOSIS Chronic mesenteric ischemia. PROCEDURE Aorta-SMA bypass with 8-mm Dacron. ATTENDING SURGEON Refugio Levy MD SOIL FERTILITY EXTENSION SPECIALIST SURGEON Sola Valentin MD ANESTHESIA General. INDICATIONS Ms. Sifuentes is a 71-year-old female who has chronic mesenteric ischemia and significant comorbidities of hypertension, coronary artery disease with bare metal stent, hypercholesteremia, skin cancer and likely vulvar cancer. She is taken to the operating room for mesenteric bypass given the patient's chronic debilitated state. DESCRIPTION OF PROCEDURE Informed consent was obtained from the patient. She was taken to the operating room and placed supine on the operating room table and appropriate time-out was taken to ensure the patient's identity, the operating site and planned procedure. One gram of Ancef was initiated prior to skin incision and will be discontinued after a single preoperative dose. Everyone the room agreed with the time-out and we proceeded. She was prepped from her chin to her knees. A vertical incision was made in the patient's midline of her abdomen from the xiphoid to just below the umbilicus, carried down in the subcutaneous tissue with electrocautery. The fascia was divided with electrocautery and the peritoneum was sharply entered. The peritoneal contents were explored and there was noted be no anatomic abnormalities. The falciform ligament was divided between the 2-0 silk ties and the ligament was divided. The left lobe of the liver was mobilized by incising the triangular ligament and the esophagus with the nasogastric tube in place was pushed to the patient's left hand side and the ashok of diaphragm was divided thereby exposing the supraceliac aorta. This was circumferentially dissected and an umbilical tape was placed around this. We then dissected collaterally along the anterior aspects of the aorta and indeed there was no celiac artery origin and the first major blood vessel in the anterior aspect of the aorta was the superior mesenteric artery. The cephalad border of the pancreas was dissected free. We then shifted our attention towards the inferomedial colic portion of the procedure. The transverse colon was retracted cephalad and the mesentery was scored. The superior mesenteric vein was identified and the left-hand side of the superior mesenteric artery was identified and dissected free for several cm with side branches controlled with a 2-0 silk for Clemente ties. A tunnel was then made along the anterior border of the superior mesenteric vein behind the pancreas and umbilical tape was placed behind the pancreas in this tunnel. The patient was systemically heparinized with 5-5 mm of IV heparin. Proximal and distal control of the supraceliac aorta were obtained with the finger and DeBakey aortic clamps and a longitudinal arteriotomy was made with an 11 blade and extended with Dickinson scissors. The aorta was endarterectomized slightly and the 8-mm Dacron was brought up on the field, spatulated and sewn end-to-side to the aorta with running 5-0 Prolene suture. At the completion it was flushed and noted to be hemostatic. The clamps were released with the conjunction of our Anesthesia colleagues and the patient remained hemodynamically stable. A Saulo Softgel was placed on the graft and the graft was passed behind the pancreas taking caution not to twist it. A clamp was placed on the graft and proximal and this control of the superior mesenteric artery obtained with profunda clamps and a longitudinal arteriotomy was made with an 11 blade, extended with Dickinson scissors. The graft was cut to appropriate length, spatulated and sewn end-to-side to the SMA with running 6-0 Prolene suture. At completion it was flushed and hemostatic. There was a nice pulse in the distal aspect of the SMA as the clamps were all released. The antimesenteric border of the bowel had a nice Doppler signal and the bowel was pink, perfused and had active peristalsis. The heparin was reversed with protamine. 2 units of FFP were administered. The anastomoses were noted be hemostatic. The SMA anastomosis was re-retroperitonealized by and reapproximating the mesentery with 2-0 Polysorb and the abdominal contents were inspected. The abdomen was closed with #1 looped PDS, 2-0 Polysorb and 4-0 Monocryl. The sponge and needle counts were correct at the end of the case. I was present, scrubbed and performed the entire procedure. MD GINGER Galvan/VIJAY /4:57 PM /9:42 AM
[2017-04-19] MEDS ORDERED: SODIUM CHLOR 0.9% 250 ML INJ 250 ML IV ONE (20:15)
[2017-04-19] MEDS: ATORVASTATIN 40 MG TAB PO SCH (21:00)
[2017-04-20 03:00] VITALS: BP 116/52; PULSE 89; PULSE 90; RESP 15; TEMP 99.5; O2SAT 96
[2017-04-20 04:03] LABS: HEMATOCRIT 26.8 % (35.0-46.0); HEMOGLOBIN 8.8 GM/DL (11.6-15.3); MEAN CELL VOLUME 84.1 FL (80.0-100.0); MEAN CORPUSCULAR HEMOGLOBIN 27.7 PG (27.0-34.0); MEAN PLATELET VOLUME 8.3 FL (7.0-11.0); PLATELET COUNT 79 TH/MM3 (150-450); RED BLOOD COUNT 3.18 MIL/MM3 (4.00-5.30); RED CELL DISTRIBUTION WIDTH 14.7 % (11.6-17.2); WHITE BLOOD COUNT 16.9 TH/MM3 (4.0-11.0)
[2017-04-20 04:22] LABS: BICARBONATE 25.8 MEQ/L (21.0-32.0); CALCIUM 7.3 MG/DL (8.5-10.1); CREATININE 0.71 MG/DL (0.50-1.00)
[2017-04-20 04:36] LABS: CALCIUM-PROTEIN CORRECTED 8.3 MG/DL (8.5-10.1); TOTAL PROTEIN 5.3 GM/DL (6.4-8.2)
[2017-04-20] MEDS: LEVOTHYROXINE SODIUM 25 MCG TAB PO SCH (04:52)
[2017-04-20] MEDS: PCA - TOTAL MG MORPHINE DELIVERED PER SHIFT SCH ×3 (05:50→22:00)
[2017-04-20] MEDS: D5-1/2 NS + KCL 20 MEQ INJ 1,000 ML IV SCH ×2 (05:51→18:36)
[2017-04-20 07:00] VITALS: BP 117/62; PULSE 89; PULSE 90; RESP 16; TEMP 99.5; O2SAT 97
[2017-04-20 08:03] VITALS: O2SAT 96
--- NOTE | 2017-04-20 08:53 | HHI.CCPN ---
Subjective Remarks/Hospital Course This is a 68-year-old female with history of coronary artery disease, peripheral vascular disease who presents for open mesenteric bypass for chronic mesenteric ischemia. She underwent uncomplicated procedure with supraceliac aortic cross-clamp. EBL was estimated to be around 250 mL's. For this she received 2800 mL's crystalloid. She arrives extubated to the CVICU in stable condition. She is arousing from anesthesia, but denies complaints. She does endorse mild abdominal pain which is tolerable to her. ROS otherwise negative. UO remains marginal, received 250 ml crystalloid boluses. 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 Increase maintenance VF to 120 ml per hour 04/20/17: Urine output improved with increasing maintenance fluid. 750 mL approximately an last 12 hours. Spiking low-grade fever 100.6. Check CXR, and paris culture. Elevated WBC count most likely stress response Objective Vital Signs Date Time Temp Pulse Resp B/P (MAP) Pulse Ox O2 Delivery O2 Flow Rate FiO2 04/20/17 08:03 96 Nasal Cannula 2.00 04/20/17 05:50 16 04/20/17 03:00 99.5 89 116/52 (73) 04/19/17 07:47 21 Intake and Output 04/20/17 04/20/17 04/21/17 08:00 16:00 00:00 Intake Total 1418 ml Output Total 835 ml Balance 583 ml Result Diagram: 04/20/17 0330 04/20/17 0330 Objective Remarks GENERAL: Elderly female, lying in bed. Mild distress HEENT: Normocephalic. Atraumatic. Pupils equal, round, reactive, conjugate. Mucous membranes are moist NECK: Trachea is midline. There is no JVD. CHEST: Equal chest rise. Nasal cannula oxygen. Left subclavian triple-lumen catheter with its site clean, dry, dressing intact CARDIOVASCULAR: Normal rate, regular rhythm. Sinus by telemetry. ABDOMEN: Soft, mildly and appropriately tender to palpation, nondistended. No guarding. Abdominal binder in place. Median laparotomy incision C/D/I MUSCULOSKELETAL: Pulses 2+. No peripheral edema. Distal pulses palpable and 2 + radial, DP. Extremities are warm and well-perfused NEUROLOGICAL: Follows commands. No focal deficits. A/P Assessment and Plan Assessment: 71-year-old female postop day 2 status post laparotomy with aortomesenteric bypass. Continue monitoring closely in the CVICU. NPO and continue mivf. frequent uop monitoring. POD 2 s/p aorto-mesenteric bypass with supraceliac cross-clamp - UOP monitoring - strict i/o's - neurovascular checks - mivf 120 ml per hour, decrease to 75 - trend daily bmp - aggressive pulmonary toilet, added Acapella - wean o2 by nc for goal spo2 > 90% Low-grade fever/leukocytosis - Chest x-ray to rule out atelectasis/infiltrate - UA and culture. Check sputum culture. No antibiotics Post-operative pain - KILN FIREMAN with Morphine - currently adequately controlled. Hyperlipidemia - continue home statin Hypertension - hold home antihypertensives. borderline hypotensive - Received Additional 500 mL crystalloid bolus for hypotension CAD - holding home beta moreno for now. Holding Plavix Hypothyroidism - continue home Synthroid SCDs keep novak, central line DC today. Keep NPO. Keep NGT- Defer to Dr. Levy Dispo: remain in ICU. Critical care medicine will continue to follow along while patient remains in the CVICU. Level 3 Leeanne Peng MD Apr 20, 2017 08:53
--- NOTE | 2017-04-20 10:03 | RADRPT ---
EXAM DATE/TIME: 04/20/2017 08:50 [facility] COMPARISON: CHEST SINGLE AP, April 18, 2017, 13:17. INDICATIONS : Respiratory disease. MEDICAL HISTORY : Hypertension. Hypercholesterolemia. Hypothyroidism. SURGICAL HISTORY : Mesenteric bypass. ENCOUNTER: Subsequent ACUITY: 3 days PAIN SCORE: 2/10 LOCATION: Abdomen. FINDINGS: Portable AP view of the chest and a straight a normal-sized cardiac silhouette. Nasogastric tube and left subclavian central line remain present. Multiple EKG lines overlie the patient. Lungs are underi nflated. There is a small right basilar pleural-parenchymal opacity, new from the prior study. Mild a irspace opacity is present at the left lung base. No pneumothorax is identified. Bones and soft tissu es demonstrate no acute finding. CONCLUSION: 1. New small right basilar opacity representing pleural effusion with associated volume loss and/or a irspace consolidation. 2. New mild opacity at the left lung base representing either atelectasis or consolidation. Danish Alvares MD on April 20, 2017 at 9:59 Board Certified Radiologist. This report was verified electronically.
--- NOTE | 2017-04-20 10:55 | PD.VS.PN ---
Subjective POD #: 2 Procedure(s): Aorto-SMA bypass Subjective/Hospital Course Afebrile 71/F sitting in chair with daughter at the BS Pt s/p aorto-SMA bypass POD 2 Low grade fever last night Pt with non productive cough ENGLE and neuro intact Incisional pain noted, controlled w/ medication Objective Vitals/I&O Date Time Temp Pulse Resp B/P (MAP) Pulse Ox O2 Delivery O2 Flow Rate FiO2 04/20/17 08:03 96 Nasal Cannula 2.00 04/20/17 05:50 16 04/20/17 03:00 99.5 89 15 116/52 (73) 96 04/20/17 03:00 90 04/19/17 23:00 96 04/19/17 23:00 100.6 96 16 108/49 (68) 97 04/19/17 22:00 16 04/19/17 20:05 93 Nasal Cannula 1.50 04/19/17 19:00 97 04/19/17 19:00 99.8 97 17 121/55 (77) Arterial Line 04/19/17 15:00 110 04/19/17 15:00 98.6 96 14 96/50 (65) 97 93/50 (64) 04/19/17 14:00 16 04/19/17 11:00 81 04/19/17 11:00 99.2 83 14 95/47 (63) 92 92/41 (58) 04/20/17 04/20/17 04/20/17 07:00 15:00 23:00 Intake Total 1418 ml Output Total 835 ml Balance 583 ml Exam: GENERAL: A&OX3,NAD, GCS15 SKIN: Midline abdominal incision intact w/o R/D/S CARDIOVASCULAR: SR on CM RESPIRATORY: No accessory muscle use. GASTROINTESTINAL: Abdomen soft, non-tender, nondistended MUSCULOSKELETAL: No cyanosis, or edema. Palpable R/L radial pulse Palpable R/L DP LE/UE warm w/ motor intact Laboratory Laboratory Tests Test 04/20/17 03:30 White Blood Count 16.9 Red Blood Count 3.18 Hemoglobin 8.8 Hematocrit 26.8 Mean Corpuscular Volume 84.1 Mean Corpuscular Hemoglobin 27.7 Mean Corpuscular Hemoglobin Concent 33.0 Red Cell Distribution Width 14.7 Platelet Count 79 Mean Platelet Volume 8.3 Blood Urea Nitrogen 9 Creatinine 0.71 Random Glucose 103 Total Protein 5.3 Calcium Level 7.3 Sodium Level 136 Potassium Level 4.4 Chloride Level 105 Carbon Dioxide Level 25.8 Anion Gap 5 Estimat Glomerular Filtration Rate 81 Protein Corrected Calcium 8.3 Assessment and Plan Plan POD#2 Improved UOP and still in fluid-avid phase of mesenteric reperfusion Non productive cough noted Plan Continue PT OOB TC/ambulation Continue MIVF NGT to remain NPO Continue I/S Pauline RETANA [facility] [phone] Pauline Alvarado Apr 20, 2017 10:55
[2017-04-20 11:00] VITALS: BP 102/47; PULSE 97; RESP 12; TEMP 99.1; O2SAT 96
[2017-04-20] MEDS: ENOXAPARIN SODIUM 30 MG/0.3 ML SYRINGE SQ SCH (12:00)
[2017-04-20 15:00] VITALS: BP 103/43; PULSE 88; PULSE 97; RESP 16; TEMP 99.2; O2SAT 93
[2017-04-20] MEDS: FAMOTIDINE 20 MG/2 ML VIAL IV PUSH SCH ×2 (15:12→20:48)
[2017-04-20] MEDS: MORPHINE SULFATE 30 MG/30 ML PCA IV SCH (17:29)
[2017-04-20 18:07] LABS: BILIRUBIN, URINE NEG (NEG); BLOOD, URINE TRACE (NEG); GLUCOSE,URINE NEG (NEG); KETONE, URINE NEG (NEG); MUCUS URINE FEW /lpf (OCC); NITRITE,URINE NEG (NEG); PH, URINE 5.5 (5.0-8.5); URINE COLOR YELLOW (YELLW/STRAW); URINE LEUKOCYTE ESTERASE NEG (NEG)
[2017-04-20 20:00] VITALS: BP 125/60; PULSE 111; RESP 16; TEMP 99; O2SAT 95
[2017-04-20] MEDS: ATORVASTATIN 40 MG TAB PO SCH (20:48)
[2017-04-21] VITALS (10 sets, daily range): BP systolic 105–138; BP diastolic 43–62; PULSE 71–98; RESP 16–20; TEMP 98–99.1; O2SAT 96–99
[2017-04-21 04:02] LABS: AUTOMATED NEUTROPHIL # 9.5 TH/MM3 (1.8-7.7); BASOPHIL % 0.1 % (0.0-2.0); EOSINOPHIL % 0.2 % (0.0-4.0); HEMATOCRIT 24.3 % (35.0-46.0); HEMOGLOBIN 8.2 GM/DL (11.6-15.3); LYMPH % 5.7 % (9.0-44.0); LYMPHOCYTE # 0.7 TH/MM3 (1.0-4.8); MEAN CELL VOLUME 83.2 FL (80.0-100.0); MEAN CORPUSCULAR HGB CONC 33.7 % (32.0-36.0); MEAN PLATELET VOLUME 8.3 FL (7.0-11.0); MONO % 12.5 % (0.0-8.0); MONOCYTE # 1.5 TH/MM3 (0-0.9); NEUT % 81.5 % (16.0-70.0); PLATELET COUNT 79 TH/MM3 (150-450); RED BLOOD COUNT 2.92 MIL/MM3 (4.00-5.30); RED CELL DISTRIBUTION WIDTH 14.6 % (11.6-17.2); WHITE BLOOD COUNT 11.6 TH/MM3 (4.0-11.0)
[2017-04-21 04:30] LABS: ALBUMIN 2.4 GM/DL (3.4-5.0); AST (GOT) 17 U/L (15-37); BICARBONATE 26.2 MEQ/L (21.0-32.0); BLOOD UREA NITROGEN 6 MG/DL (7-18); CALCIUM 7.7 MG/DL (8.5-10.1); CHLORIDE 104 MEQ/L (98-107); CREATININE 0.52 MG/DL (0.50-1.00); GLOMERULAR FILTRATION RATE 117 ML/MIN (>89); GLUCOSE,RANDOM 96 MG/DL (74-106); SODIUM (NA) 135 MEQ/L (136-145)
[2017-04-21 04:34] LABS: ALKALINE PHOSPHATASE 62 U/L (45-117); ALT (GPT) 19 U/L (10-53); TOTAL BILIRUBIN ADULT 0.6 MG/DL (0.2-1.0); TOTAL PROTEIN 5.2 GM/DL (6.4-8.2)
--- NOTE | 2017-04-21 04:52 | RADRPT ---
EXAM DATE/TIME: 04/21/2017 03:28 [facility] COMPARISON: CHEST SINGLE AP, April 20, 2017, 8:50. INDICATIONS : Shortness of breath, possible pneumothorax. MEDICAL HISTORY : Hypertension. Hypercholesterolemia. Hypothyroidism. SURGICAL HISTORY : Mesenteric bypass ENCOUNTER: Subsequent ACUITY: 4 - 6 days PAIN SCORE: 3/10 LOCATION: Bilateral chest FINDINGS: The NG tube is in the upper stomach. Clips are seen in the upper abdomen. The heart size is normal. T here is hazy density seen in the mid and lower right chest with silhouetting of the right hemidiaphra gm. Calcified granulomas are seen in the right base. Left lung is clear. CONCLUSION: Right lower lobe consolidation and effusion. Danish Calderón MD on April 21, 2017 at 4:49 Board Certified Radiologist. This report was verified electronically.
[2017-04-21] MEDS: PCA - TOTAL MG MORPHINE DELIVERED PER SHIFT SCH ×3 (06:00→22:00)
[2017-04-21] MEDS: LEVOTHYROXINE SODIUM 25 MCG TAB PO SCH (06:00)
[2017-04-21] MEDS: D5-1/2 NS + KCL 20 MEQ INJ 1,000 ML IV SCH ×3 (07:38→23:01)
[2017-04-21 07:46] LABS: ACANTHOCYTES 1+ (NORMAL); OVALOCYTES 1+ (NORMAL)
[2017-04-21] MEDS: ASPIRIN 81 MG CHEW TAB PO SCH (09:00)
--- NOTE | 2017-04-21 09:18 | PD.VS.PN ---
Subjective POD #: 3 Procedure(s): Aorto-SMA bypass Subjective/Hospital Course Afebrile 71/F s/p aorto-SMA bypass POD 3 Pt looks good + BS Pain controlled Objective Vitals/I&O Date Time Temp Pulse Resp B/P (MAP) Pulse Ox O2 Delivery O2 Flow Rate FiO2 04/21/17 07:08 97 Nasal Cannula 2.00 04/21/17 06:00 16 04/21/17 04:00 99.1 72 16 115/52 (73) 98 04/21/17 04:00 72 04/21/17 00:00 79 04/21/17 00:00 98.8 79 16 118/50 (72) 99 04/20/17 22:00 16 04/20/17 20:00 111 04/20/17 20:00 99.0 111 16 125/60 (81) 95 04/20/17 17:34 16 04/20/17 17:29 14 04/20/17 15:00 97 04/20/17 15:00 99.2 88 16 103/43 (63) 93 04/20/17 14:00 14 04/20/17 11:00 99.1 97 12 102/47 (65) 96 04/20/17 11:00 97 04/21/17 04/21/17 04/21/17 07:00 15:00 23:00 Intake Total 0 ml Output Total 1000 ml Balance -1000 ml Exam: GENERAL: A&OX3,NAD, GCS15 SKIN: Warm and dry. Mid line abdominal incision intact C/D w/o S/O/D mild erythema noted at the incision line CARDIOVASCULAR: NSR on CM RESPIRATORY: Breath sounds equal bilaterally. No accessory muscle use. Pt on 2L/NC GASTROINTESTINAL: Abdomen soft, non-tender, nondistended. + BS MUSCULOSKELETAL: No cyanosis, or edema. Pulses: Palpable R/L radial pulses present Palpable R/L DP pulses present Laboratory Laboratory Tests Test 04/20/17 16:50 04/21/17 02:57 Urine Color YELLOW Urine Turbidity CLEAR Urine pH 5.5 Urine Specific [place] 1.012 Urine Protein TRACE Urine Glucose (UA) NEG Urine Ketones NEG Urine Occult Blood TRACE Urine Nitrite NEG Urine Bilirubin NEG Urine Urobilinogen LESS THAN 2.0 Urine Leukocyte Esterase NEG Urine RBC 3 Urine WBC 1 Urine Mucus FEW White Blood Count 11.6 Red Blood Count 2.92 Hemoglobin 8.2 Hematocrit 24.3 Mean Corpuscular Volume 83.2 Mean Corpuscular Hemoglobin 28.0 Mean Corpuscular Hemoglobin Concent 33.7 Red Cell Distribution Width 14.6 Platelet Count 79 Mean Platelet Volume 8.3 Neutrophils (%) (Auto) 81.5 Lymphocytes (%) (Auto) 5.7 Monocytes (%) (Auto) 12.5 Eosinophils (%) (Auto) 0.2 Basophils (%) (Auto) 0.1 Neutrophils # (Auto) 9.5 Lymphocytes # (Auto) 0.7 Monocytes # (Auto) 1.5 Eosinophils # (Auto) 0.0 Basophils # (Auto) 0.0 CBC Comment AUTO DIFF Differential Comment FINAL DIFF MANUAL Platelet Estimate LOW Platelet Morphology Comment NORMAL Ovalocytes 1+ Acanthocytes 1+ Blood Urea Nitrogen 6 Creatinine 0.52 Random Glucose 96 Total Protein 5.2 Albumin 2.4 Calcium Level 7.7 Alkaline Phosphatase 62 Aspartate Amino Transf (AST/SGOT) 17 Alanine Aminotransferase (ALT/SGPT) 19 Total Bilirubin 0.6 Sodium Level 135 Potassium Level 4.0 Chloride Level 104 Carbon Dioxide Level 26.2 Anion Gap 5 Estimat Glomerular Filtration Rate 117 Assessment and Plan Assessment: (1) Mesenteric ischemia, chronic Plan POD#3 Continues with improved UOP and still in fluid-avid phase of mesenteric reperfusion + BS present labs reviewed Plan Continue PT OOB TC/ambulation Continue MIVF D/C NGT Keep pt NPO Continue I/S Pauline RETANA [facility]/[employer] [phone] Pauline Alvarado Apr 21, 2017 09:18
[2017-04-21] MEDS: FAMOTIDINE 20 MG/2 ML VIAL IV PUSH SCH ×2 (09:22→20:25)
[2017-04-21] MEDS: ENOXAPARIN SODIUM 30 MG/0.3 ML SYRINGE SQ SCH (11:52)
--- NOTE | 2017-04-21 11:59 | HHI.CCPN ---
Subjective Remarks/Hospital Course This is a 68-year-old female with history of coronary artery disease, peripheral vascular disease who presents for open mesenteric bypass for chronic mesenteric ischemia. She underwent uncomplicated procedure with supraceliac aortic cross-clamp. EBL was estimated to be around 250 mL's. For this she received 2800 mL's crystalloid. She arrives extubated to the CVICU in stable condition. She is arousing from anesthesia, but denies complaints. She does endorse mild abdominal pain which is tolerable to her. ROS otherwise negative. UO remains marginal, received 250 ml crystalloid boluses. 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 Increase maintenance VF to 120 ml per hour 04/20/17: Urine output improved with increasing maintenance fluid. 750 mL approximately an last 12 hours. Spiking low-grade fever 100.6. Check CXR, and paris culture. Elevated WBC count most likely stress response 04/21/17: Clinically improving white count down to 11.6 from 16.9. No fever. Chest x-ray shows small right effusion with atelectasis/infiltrate. There is no clinical evidence of pneumonia-start antibiotics. Urine output 1.5 L in 24 hours. NG tube discontinued Objective Vital Signs Date Time Temp Pulse Resp B/P (MAP) Pulse Ox O2 Delivery O2 Flow Rate FiO2 04/21/17 11:00 71 04/21/17 11:00 99.0 20 116/46 (69) 98 04/21/17 07:08 Nasal Cannula 2.00 04/19/17 07:47 21 Intake and Output 04/21/17 04/21/17 04/22/17 08:00 16:00 00:00 Intake Total 0 ml Output Total 1000 ml Balance -1000 ml Result Diagram: 04/21/17 0257 04/21/17 0257 Objective Remarks GENERAL: Elderly female, sitting up in chair HEENT: Normocephalic. Atraumatic. Pupils equal, round Mucous membranes are moist NECK: Trachea is midline. There is no JVD. CHEST: Equal chest rise. Nasal cannula oxygen. An entry equal bilaterally CARDIOVASCULAR: Normal rate, regular rhythm. Sinus by telemetry. ABDOMEN: Soft, mildly and appropriately tender to palpation, nondistended. No guarding. Median laparotomy incision C/D/I MUSCULOSKELETAL: Pulses 2+. No peripheral edema. Distal pulses palpable and 2 + radial, DP. Extremities are warm and well-perfused NEUROLOGICAL: Follows commands. No focal deficits. A/P Assessment and Plan Assessment: 71-year-old female postop day 2 status post laparotomy with aortomesenteric bypass. Continue monitoring closely in the CVICU. NPO and continue mivf. frequent uop monitoring. POD 3 s/p aorto-mesenteric bypass with supraceliac cross-clamp - UOP monitoring - strict i/o's - neurovascular checks - mivf 75 ml per hour - trend daily bmp - aggressive pulmonary toilet, added Acapella. Add EzPAP - wean o2 by nc for goal spo2 > 90% Low-grade fever/leukocytosis - CXR shows R effusion, with possible atelectasis - I doubt pneumonia as the white count is improved to 11.6 from 16.9 and patient is clinically improving without fever - No antibiotics. 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 Hyperlipidemia - continue home statin Hypertension - hold home antihypertensives. borderline hypotensive CAD - holding home beta moreno for now. Resume Plavix when cleared by Dr. Levy Hypothyroidism - continue home Synthroid SCDs keep novak, Keep NPO. NGT Dcd Dispo: remain in ICU. PO intake per Vascular surgery Critical care medicine will continue to follow along while patient remains in the CVICU. Level 2 Leeanne Peng MD Apr 21, 2017 11:59
[2017-04-21] MEDS: ATORVASTATIN 40 MG TAB PO SCH (20:24)
[2017-04-22] VITALS (18 sets, daily range): BP systolic 109–157; BP diastolic 48–82; PULSE 61–91; RESP 16–20; TEMP 97.7–98.8; O2SAT 95–97
[2017-04-22 04:00] LABS: AUTOMATED NEUTROPHIL # 5.2 TH/MM3 (1.8-7.7); BASOPHIL % 0.2 % (0.0-2.0); EOSINOPHIL % 0.4 % (0.0-4.0); HEMATOCRIT 23.2 % (35.0-46.0); HEMOGLOBIN 8.1 GM/DL (11.6-15.3); LYMPH % 9.1 % (9.0-44.0); LYMPHOCYTE # 0.6 TH/MM3 (1.0-4.8); MEAN CELL VOLUME 82.6 FL (80.0-100.0); MEAN CORPUSCULAR HEMOGLOBIN 28.9 PG (27.0-34.0); MEAN PLATELET VOLUME 8.7 FL (7.0-11.0); NEUT % 76.3 % (16.0-70.0); PLATELET COUNT 90 TH/MM3 (150-450); RED CELL DISTRIBUTION WIDTH 14.5 % (11.6-17.2); WHITE BLOOD COUNT 6.8 TH/MM3 (4.0-11.0)
[2017-04-22 04:26] LABS: ALBUMIN 2.4 GM/DL (3.4-5.0); AST (GOT) 9 U/L (15-37); BICARBONATE 26.9 MEQ/L (21.0-32.0); BLOOD UREA NITROGEN 4 MG/DL (7-18); CALCIUM 8.2 MG/DL (8.5-10.1); CHLORIDE 104 MEQ/L (98-107); GLOMERULAR FILTRATION RATE 158 ML/MIN (>89); GLUCOSE,RANDOM 86 MG/DL (74-106); SODIUM (NA) 137 MEQ/L (136-145)
[2017-04-22 04:27] LABS: ALT (GPT) 16 U/L (10-53)
[2017-04-22 04:29] LABS: ALKALINE PHOSPHATASE 58 U/L (45-117); TOTAL BILIRUBIN ADULT 0.8 MG/DL (0.2-1.0); TOTAL PROTEIN 5.3 GM/DL (6.4-8.2)
[2017-04-22 04:38] LABS: ACANTHOCYTES OCC (NORMAL); KERATOCYTES OCC (NORMAL); OVALOCYTES 1+ (NORMAL)
--- NOTE | 2017-04-22 05:21 | RADRPT ---
EXAM DATE/TIME: 04/22/2017 04:03 [facility] COMPARISON: CHEST SINGLE AP, April 20, 2017, 8:50. CHEST SINGLE AP, April 21, 2017, 3:28. INDICATIONS : Evaluate for pneumothorax MEDICAL HISTORY : Hypertension. Hypercholesterolemia. Hypothyroidism. SURGICAL HISTORY : Mesenteric bypass ENCOUNTER: Subsequent ACUITY: 1 week PAIN SCORE: 7/10 LOCATION: Bilateral chest FINDINGS: Interval improvement in right-sided pleural effusion with residual airspace disease at the right lung base. No significant pneumothorax. Cardiomediastinal contours are stable. Stent is noted in the left lower cervical region. There is apparent mild discontinuity of the optimal segment of the stent. Rem ainder of the exam is unchanged. CONCLUSION: 1. Improved right sided pleural effusion with residual right lung base airspace disease. 2. No significant pneumothorax. 3. Questionable fractured common carotid stent. Frank Sung MD on April 22, 2017 at 5:15 Board Certified Radiologist. This report was verified electronically.
[2017-04-22] MEDS: LEVOTHYROXINE SODIUM 25 MCG TAB PO SCH (05:32)
[2017-04-22] MEDS: PCA - TOTAL MG MORPHINE DELIVERED PER SHIFT SCH (05:33)
[2017-04-22] MEDS ORDERED: MAGNESIUM HYDROXIDE SUSP 30 ML CUP PO PRN (09:30)
[2017-04-22] MEDS ORDERED: MORPHINE SULFATE 4 MG/ML INJ IV PUSH PRN (09:30)
[2017-04-22] MEDS ORDERED: SENNOSIDES 8.6 MG TAB PO PRN (09:30)
[2017-04-22] MEDS ORDERED: LACTULOSE SYRUP 20 GM/30 ML CUP PO PRN (09:30)
[2017-04-22] MEDS ORDERED: BISACODYL 10 MG SUPP RECTAL PRN (09:30)
[2017-04-22] MEDS: ASPIRIN 81 MG CHEW TAB PO SCH (09:50)
[2017-04-22] MEDS: FAMOTIDINE 20 MG/2 ML VIAL IV PUSH SCH ×2 (09:50→20:21)
--- NOTE | 2017-04-22 10:14 | PD.VS.PN ---
Subjective POD #: 4 Procedure(s): Aorto-SMA bypass Subjective/Hospital Course Looks great; matt liq last night no nausea/vomiting Objective Vitals/I&O Date Time Temp Pulse Resp B/P (MAP) Pulse Ox O2 Delivery O2 Flow Rate FiO2 04/22/17 08:15 97 Nasal Cannula 2.00 04/22/17 06:00 16 04/22/17 05:33 16 04/22/17 03:00 97.9 66 16 109/52 (71) 96 04/22/17 03:00 66 04/21/17 23:00 98.7 86 16 129/59 (82) 96 04/21/17 23:00 80 04/21/17 22:00 16 04/21/17 22:00 17 04/21/17 19:13 98 Nasal Cannula 2.00 04/21/17 19:00 98.2 98 18 138/62 (87) 98 04/21/17 19:00 98 04/21/17 15:00 77 04/21/17 15:00 98.2 77 18 109/43 (65) 98 04/21/17 14:10 20 04/21/17 11:00 71 04/21/17 11:00 99.0 71 20 116/46 (69) 98 04/22/17 04/22/17 04/22/17 07:00 15:00 23:00 Intake Total 597 ml Output Total 1500 ml Balance -903 ml Exam: incision clean and dry nontender Laboratory Laboratory Tests Test 04/22/17 03:35 White Blood Count 6.8 Red Blood Count 2.80 Hemoglobin 8.1 Hematocrit 23.2 Mean Corpuscular Volume 82.6 Mean Corpuscular Hemoglobin 28.9 Mean Corpuscular Hemoglobin Concent 35.0 Red Cell Distribution Width 14.5 Platelet Count 90 Mean Platelet Volume 8.7 Neutrophils (%) (Auto) 76.3 Lymphocytes (%) (Auto) 9.1 Monocytes (%) (Auto) 14.0 Eosinophils (%) (Auto) 0.4 Basophils (%) (Auto) 0.2 Neutrophils # (Auto) 5.2 Lymphocytes # (Auto) 0.6 Monocytes # (Auto) 1.0 Eosinophils # (Auto) 0.0 Basophils # (Auto) 0.0 CBC Comment AUTO DIFF Differential Comment AUTO DIFF CONFIRMED Platelet Estimate LOW Platelet Morphology Comment NORMAL Ovalocytes 1+ Acanthocytes OCC Keratocytes OCC Blood Urea Nitrogen 4 Creatinine 0.40 Random Glucose 86 Total Protein 5.3 Albumin 2.4 Calcium Level 8.2 Alkaline Phosphatase 58 Aspartate Amino Transf (AST/SGOT) 9 Alanine Aminotransferase (ALT/SGPT) 16 Total Bilirubin 0.8 Sodium Level 137 Potassium Level 3.7 Chloride Level 104 Carbon Dioxide Level 26.9 Anion Gap 6 Estimat Glomerular Filtration Rate 158 Assessment and Plan Assessment: (1) Mesenteric ischemia, chronic Plan POD#4 Looks good start full liquids HL IVF change IV to po meds tx to [facility] Discharge Planning several days Simone Levy MD Apr 22, 2017 10:14
[2017-04-22] MEDS: HYDROmorphone HCL 2 MG TAB PO PRN ×4 (10:45→22:37)
--- NOTE | 2017-04-22 11:57 | HHI.CCPN ---
Subjective Remarks/Hospital Course This is a 68-year-old female with history of coronary artery disease, peripheral vascular disease who presents for open mesenteric bypass for chronic mesenteric ischemia. She underwent uncomplicated procedure with supraceliac aortic cross-clamp. EBL was estimated to be around 250 mL's. For this she received 2800 mL's crystalloid. She arrives extubated to the CVICU in stable condition. She is arousing from anesthesia, but denies complaints. She does endorse mild abdominal pain which is tolerable to her. ROS otherwise negative. UO remains marginal, received 250 ml crystalloid boluses. 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 Increase maintenance VF to 120 ml per hour 04/20/17: Urine output improved with increasing maintenance fluid. 750 mL approximately an last 12 hours. Spiking low-grade fever 100.6. Check CXR, and paris culture. Elevated WBC count most likely stress response 04/21/17: Clinically improving white count down to 11.6 from 16.9. No fever. Chest x-ray shows small right effusion with atelectasis/infiltrate. There is no clinical evidence of pneumonia-start antibiotics. Urine output 1.5 L in 24 hours. NG tube discontinued 04/22: Wbc count has normalized. Urine output adequate no fever no cough. Chest x-ray continued to have right lower lobe infiltrate most likely atelectasis no clinical evidence of pneumonia Objective Vital Signs Date Time Temp Pulse Resp B/P (MAP) Pulse Ox O2 Delivery O2 Flow Rate FiO2 04/22/17 11:34 16 04/22/17 08:15 97 Nasal Cannula 2.00 04/22/17 03:00 97.9 66 109/52 (71) 04/19/17 07:47 21 Intake and Output 04/22/17 04/22/17 04/23/17 08:00 16:00 00:00 Intake Total 597 ml Output Total 1500 ml Balance -903 ml Result Diagram: 04/22/17 0335 04/22/17 0335 Objective Remarks GENERAL: Elderly female, sitting up in chair, having by mouth intake HEENT: Normocephalic. Atraumatic. Pupils equal, round Mucous membranes are moist NECK: Trachea is midline. There is no JVD. CHEST: Equal chest rise. Nasal cannula oxygen. An entry equal bilaterally CARDIOVASCULAR: Normal rate, regular rhythm. Sinus by telemetry. ABDOMEN: Soft, mildly and appropriately tender to palpation, nondistended. No guarding. Median laparotomy incision C/D/I MUSCULOSKELETAL: Pulses 2+. No peripheral edema. Distal pulses palpable and 2 + radial, DP. Extremities are warm and well-perfused NEUROLOGICAL: Follows commands. No focal deficits. A/P Assessment and Plan Assessment: 71-year-old female postop day 2 status post laparotomy with aortomesenteric bypass. Continue monitoring closely in the CVICU. NPO and continue mivf. frequent uop monitoring. POD 3 s/p aorto-mesenteric bypass with supraceliac cross-clamp - UOP monitoring, strict i/o's - neurovascular checks - mivf 75 ml per hour - trend daily bmp - aggressive pulmonary toilet, added Acapella. Add EzPAP - wean o2 by nc for goal spo2 > 90% Low-grade fever/leukocytosis-resolved - CXR shows R effusion, with possible atelectasis-no clinical evidence of pneumonia with normal white count and no fever cough - No antibiotics. 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 Hyperlipidemia - continue home statin Hypertension - hold home antihypertensives. borderline hypotensive CAD - holding home beta moreno for now. Resume Plavix when cleared by Dr. Levy Hypothyroidism - continue home Synthroid SCDs keep novak, Diet per vascular Dispo: Transfer to CPCU per Dr. Levy CCM will sign off. Re consult if needed Level 2 Leeanne Peng MD Apr 22, 2017 11:57
[2017-04-22] MEDS: ENOXAPARIN SODIUM 30 MG/0.3 ML SYRINGE SQ SCH (11:58)
[2017-04-22] MEDS: ATORVASTATIN 40 MG TAB PO SCH (20:21)
[2017-04-22] MEDS: DOCUSATE SODIUM 50 MG/SENNA 8.6 MG TAB PO SCH (20:22)
[2017-04-23] VITALS (30 sets, daily range): BP systolic 99–146; BP diastolic 51–59; PULSE 54–98; RESP 16; TEMP 97.6–99.5; O2SAT 93–97
[2017-04-23] MEDS: LEVOTHYROXINE SODIUM 25 MCG TAB PO SCH (05:52)
[2017-04-23] MEDS: DOCUSATE SODIUM 50 MG/SENNA 8.6 MG TAB PO SCH ×2 (08:43→21:00)
[2017-04-23] MEDS: ASPIRIN 81 MG CHEW TAB PO SCH (08:43)
[2017-04-23] MEDS: FAMOTIDINE 20 MG/2 ML VIAL IV PUSH SCH ×2 (08:44→21:28)
--- NOTE | 2017-04-23 10:56 | PD.VS.PN ---
Subjective POD #: 5 Procedure(s): Aorto-SMA bypass Subjective/Hospital Course Looks great; matt liq last night no nausea/vomiting pain controlled but doesn't like pain meds Objective Vitals/I&O Date Time Temp Pulse Resp B/P (MAP) Pulse Ox O2 Delivery O2 Flow Rate FiO2 04/23/17 10:07 84 04/23/17 09:00 76 04/23/17 08:27 98.1 85 16 99/59 (72) 95 04/23/17 08:00 78 04/23/17 07:26 93 04/23/17 06:00 54 04/23/17 05:00 60 04/23/17 04:00 60 04/23/17 03:30 97.6 77 16 103/51 (68) 94 04/23/17 03:00 61 04/23/17 02:00 74 04/23/17 01:00 72 04/23/17 00:00 78 04/22/17 23:00 97.7 74 16 129/61 (83) 96 04/22/17 23:00 61 04/22/17 22:00 91 04/22/17 21:00 86 04/22/17 20:00 76 04/22/17 19:50 98.6 77 16 118/48 (71) 95 04/22/17 19:00 78 04/22/17 18:00 66 04/22/17 17:00 78 04/22/17 16:00 84 04/22/17 15:00 98.8 82 18 133/57 (82) 96 04/22/17 15:00 89 04/22/17 14:02 98.8 83 18 145/82 (103) 96 04/22/17 14:00 86 04/22/17 12:13 16 04/22/17 12:00 98.2 89 16 157/78 (104) 97 04/22/17 12:00 80 04/22/17 11:34 16 04/22/17 11:00 89 04/23/17 04/23/17 04/23/17 06:59 14:59 22:59 Intake Total 300 ml Output Total 200 ml Balance 100 ml Exam: abdominal incision c/d/i abdomen soft Assessment and Plan Assessment: (1) Mesenteric ischemia, chronic Plan POD#5 Looks great cardiac diet continue ambulation tylenol for pain Discharge Planning maybe Tuesday (POD#6) Simone Levy MD Apr 23, 2017 10:56
[2017-04-23] MEDS ORDERED: ACETAMINOPHEN 325 MG TAB PO PRN (11:00)
[2017-04-23] MEDS: HYDROmorphone HCL 2 MG TAB PO PRN (11:14)
[2017-04-23] MEDS: ENOXAPARIN SODIUM 30 MG/0.3 ML SYRINGE SQ SCH (11:15)
[2017-04-23] MEDS: ATORVASTATIN 40 MG TAB PO SCH (21:28)
[2017-04-24] VITALS (15 sets, daily range): BP systolic 117–128; BP diastolic 56–59; PULSE 66–106; RESP 16; TEMP 98.5–98.6; O2SAT 92–95
--- NOTE | 2017-04-24 04:33 | RADRPT ---
EXAM DATE/TIME: 04/24/2017 03:28 [facility] COMPARISON: CHEST SINGLE AP, April 22, 2017, 4:03. INDICATIONS : Shortness of breath, possible pulmonary disease. MEDICAL HISTORY : Hypertension. Hypercholesterolemia. Hyperthyroidism. SURGICAL HISTORY : Mesenteric bypass ENCOUNTER: Subsequent ACUITY: 1 week PAIN SCORE: 6/10 LOCATION: Bilateral chest FINDINGS: Improved small right pleural effusion and associated right lower lobe airspace disease. Cardiomediast inal contours are stable. Remainder of the exam is unchanged. CONCLUSION: 1. Improved small right pleural effusion and associated right lower lobe airspace disease. Frank Sung MD on April 24, 2017 at 4:29 Board Certified Radiologist. This report was verified electronically.
[2017-04-24] MEDS: LEVOTHYROXINE SODIUM 25 MCG TAB PO SCH (06:47)
--- NOTE | 2017-04-24 09:44 | PD.VS.PN ---
Subjective POD #: 6 Procedure(s): Aorto-SMA bypass Subjective/Hospital Course matt reg diet no pain occasional soreness ambulating + BM voiding Objective Vitals/I&O Date Time Temp Pulse Resp B/P (MAP) Pulse Ox O2 Delivery O2 Flow Rate FiO2 04/24/17 07:38 98.5 74 16 128/58 (81) 94 04/24/17 06:00 82 04/24/17 05:00 90 04/24/17 04:00 76 04/24/17 03:44 98.5 76 16 125/59 (81) 92 04/24/17 03:00 76 04/24/17 02:00 72 04/24/17 01:00 80 04/24/17 00:00 77 04/23/17 23:25 98.7 77 16 122/58 (79) 93 04/23/17 23:00 90 04/23/17 22:00 81 04/23/17 21:00 72 04/23/17 20:00 85 04/23/17 19:54 99.5 87 16 120/57 (78) 94 04/23/17 19:00 87 04/23/17 18:04 98 04/23/17 17:00 84 04/23/17 16:00 90 04/23/17 15:21 98.6 88 16 113/53 (73) 97 04/23/17 15:18 83 04/23/17 14:38 83 04/23/17 13:34 95 04/23/17 12:27 98 04/23/17 11:11 98.1 88 16 146/58 (87) 96 04/23/17 11:00 79 04/23/17 10:07 84 04/24/17 04/24/17 04/24/17 07:00 15:00 23:00 Intake Total 420 ml Output Total 500 ml Balance -80 ml Exam: sitting in chair no distress neuro intact Assessment and Plan Assessment: (1) Mesenteric ischemia, chronic Plan POD#6 ready for d/c Discharge Planning today Simone Levy MD Apr 24, 2017 09:44
--- NOTE | 2017-04-24 09:46 | PD.VS.DC ---
cc: Tej Ruelas MD Discharge Summary Admission Date: Apr 18, 2017 at 06:05 Discharge Date: Apr 24, 2017 Admission Diagnosis: Discharge Diagnosis: (1) Mesenteric ischemia, chronic ICD Codes: K55.1 - Chronic vascular disorders of intestine Brief History from admission 71 yo female with COPD, CAD, SCCa and chronic mesenteric ischemia. Admitted for mesenteric bypass. Procedure(s): Aorto-SMA bypass Significant Findings Laboratory Tests Test 04/22/17 03:35 Red Blood Count 2.80 MIL/MM3 (4.00-5.30) Hemoglobin 8.1 GM/DL (11.6-15.3) Hematocrit 23.2 % (35.0-46.0) Platelet Count 90 TH/MM3 (150-450) Neutrophils (%) (Auto) 76.3 % (16.0-70.0) Monocytes (%) (Auto) 14.0 % (0.0-8.0) Lymphocytes # (Auto) 0.6 TH/MM3 (1.0-4.8) Monocytes # (Auto) 1.0 TH/MM3 (0-0.9) Platelet Estimate LOW (NORMAL) Ovalocytes 1+ (NORMAL) Acanthocytes OCC (NORMAL) Keratocytes OCC (NORMAL) Blood Urea Nitrogen 4 MG/DL (7-18) Creatinine 0.40 MG/DL (0.50-1.00) Total Protein 5.3 GM/DL (6.4-8.2) Albumin 2.4 GM/DL (3.4-5.0) Calcium Level 8.2 MG/DL (8.5-10.1) Aspartate Amino Transf (AST/SGOT) 9 U/L (15-37) Hospital Course: The patient underwent aorto-SMA bypass on 04/18. She did very well and was monitored in the ICU post-operatively. Her NGT was removed on POD#3 and she was slowly restarted on oral diet. At the time of discharge, she was ambulating independently, tolerating regular diet and requiring only tylenol for pain. Discharge Condition: Good Discharge Disposition: Discharge Home Any questions or concerns: Call [facility] at [facility] [phone] Simone Levy MD Apr 24, 2017 09:46
[2017-04-24] MEDS: DOCUSATE SODIUM 50 MG/SENNA 8.6 MG TAB PO SCH (09:58)
[2017-04-24] MEDS: ASPIRIN 81 MG CHEW TAB PO SCH (10:00)
[2017-04-24] MEDS: FAMOTIDINE 20 MG/2 ML VIAL IV PUSH SCH (10:00)
== END 2017-04-24 11:50 | disposition home or self-care (01) | DRG 357 ==
LOC: HSDI 06:05 → HCVI 11:41 → HCPC 04-22 14:00
PROVIDERS: ADMIT Surgery; ATTEND Surgery
PROC: 30233K1 Transfusion of Nonautologous Frozen Plasma into Peripheral Vein, Percutaneous Approach (ICD-10-PCS; 2017-04-18)
PROC: 04C00ZZ Extirpation of Matter from Abdominal Aorta, Open Approach (ICD-10-PCS; principal; 2017-04-18 07:56)
PROC: 041 Lower Arteries, Bypass (ICD-10-PCS; 2017-04-18 07:56)
DX: K55.1 Chronic vascular disorders of intestine (principal); J98.11 Atelectasis; J44.9 Chronic obstructive pulmonary disease, unspecified; C51.9 Malignant neoplasm of vulva, unspecified; I10 Essential (primary) hypertension; E78.5 Hyperlipidemia, unspecified; I25.10 Atherosclerotic heart disease of native coronary artery without angina pectoris; Z95.5 Presence of coronary angioplasty implant and graft; C44.90 Unspecified malignant neoplasm of skin, unspecified; Z96.642 Presence of left artificial hip joint; I73.9 Peripheral vascular disease, unspecified; E03.9 Hypothyroidism, unspecified; D72.829 Elevated white blood cell count, unspecified; N99.0 Postprocedural (acute) (chronic) kidney failure; G89.18 Other acute postprocedural pain
CPT/HCPCS: 36430; 71045; 80048; 80053; 81001; 84155; 85007; 85025; 85027; 86850; 86900; 86901; 86920; 86927; 94150; 94640; 94667; 94668; C1768; J0131; J0690; J1100; J1170; J1644; J1650; J2250; J2270; J2370; J2405; J2710; J2720; J3010; J3480; J7040; J7050; J7120; P9017

== ENCOUNTER 2017-07-04 14:32 | Emergency (ER) | payer MEDICARE ==
[~2017-07-04] VITALS: Ht 152.4 cm; Wt 51.0 kg
[~2017-07-04 14:32] MED LIST changes: +COQ-30CA2; +LACT1CAP19
[2017-07-04 14:47] VITALS: BP 144/59; PULSE 72; RESP 16; TEMP 98.6; O2SAT 100
[2017-07-04 15:09] LABS: BILIRUBIN, URINE NEG (NEG); BLOOD, URINE NEG (NEG); GLUCOSE,URINE NEG (NEG); KETONE, URINE NEG (NEG); NITRITE,URINE NEG (NEG); URINE COLOR YELLOW (YELLW/STRAW); URINE LEUKOCYTE ESTERASE NEG (NEG)
[2017-07-04 15:15] LABS: BACTERIA, URINE FEW /hpf; RBC, URINE 0-3 /hpf (0-3); SQUAMOUS EPITHELIAL CELL URINE 0-5 /hpf (0-5); TRANSITIONAL EPI CELLS, URINE 0-5 /hpf; WBC, URINE 0-2 /hpf (0-5)
[2017-07-04 15:30] VITALS: O2SAT 100
[2017-07-04] MEDS ORDERED: ONDANSETRON HCL 4 MG/2 ML VIAL IVP ONE (15:30)
[2017-07-04] MEDS ORDERED: MORPHINE SULFATE 4 MG/ML INJ IV PUSH ONE (15:30)
[2017-07-04] MEDS ORDERED: SODIUM CHLORIDE 0.9% FLUSH 10 ML FLUSH IV FLUSH PRN (15:30)
[2017-07-04] MEDS ORDERED: SODIUM CHLOR 0.9% 1000 ML INJ 1,000 ML IV SCH (15:30)
--- NOTE | 2017-07-04 15:37 | PD ---
HPI Chief Complaint: Abdominal Pain Time Seen by Provider: 15:18 Travel History International Travel<30 days: No Contact w/Intl Traveler<30days: No Traveled to known affect area: No History of Present Illness HPI The patient is a 71-year-old female who presents to the emergency department for left lower quadrant abdominal pain. The patient states the pain started approximately 8:30 AM. The pain is located in the left lower aspect of the abdomen, radiates into the left inguinal area, worse with certain movements such as sitting upright in transitioning out of bed. However, she still has a dull ache at rest. She denies any nausea, vomiting, diarrhea, or constipation. She denies any dysuria, frequency, urgency, or hematuria. She denies any history of similar symptoms, diverticulitis, or nephrolithiasis. The patient did undergo surgery for mesenteric ischemia in April [address] Levy. The patient states this pain is different, the other pain was located in the epigastrium and related to eating. She denies any known trauma to the affected area or recent falls. She denies any radiation of the pain down the left lower extremity denies any weakness, numbness, tingling, or coolness to the left lower extremity. PFSH Past Medical History Hx Anticoagulant Therapy: Yes (PLAVIX, ASPIRIN) Arthritis: Yes Anxiety: No Depression: No Cancer: Yes (SQUAMOUS CELL SKIN CA) Cardiovascular Problems: Yes High Cholesterol: Yes Chemotherapy: No Congestive Heart Failure: No COPD: No Cerebrovascular Accident: Yes (TIA 2014) Diabetes: No Diminished Hearing: No Endocrine: Yes Gastrointestinal Disorders: Yes (Gastro peresis, Mesentery artery syndrome, mesntery ischemia ) Genitourinary: No Hepatitis: No Hiatal Hernia: No Hypertension: Yes Immune Disorder: No Implanted Vascular Access Dvce: Yes Musculoskeletal: Yes (ARTHRITIS) Neurologic: Yes (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) Psychiatric: No Reproductive: Yes (GENITAL WARTS) Respiratory: No Immunizations Current: Yes Radiation Therapy: No Renal Failure: No Seizures: No Thyroid Disease: Yes (HYPOTHYRODISM) Ulcer: Yes (STOMACH 2017) ?: Not Past Surgical History Abdominal Surgery: Yes (CHOLECYSTECTOMY ) AICD: No Body Medical Devices: CARDIAC STENTS X 6 Cardiac Surgery: Yes (HEART CATH - 6 CARDIAC STENTS, BILATERAL ENDARTECTOMY) Ear Surgery: No Endocrine Surgery: No Eye Surgery: No Genitourinary Surgery: No Gynecologic Surgery: Yes (C SECTION 1976) Joint Replacement: Yes (LEFT HIP ) Oral Surgery: No Pacemaker: No Thoracic Surgery: No Other Surgery: Yes Social History Alcohol Use: No Tobacco Use: Yes (1/2 pack per day) Substance Use: No Allergies-Medications (Allergen,Severity, Reaction): Coded Allergies: erythromycin base (Unverified Adverse Reaction, Severe, LESIONS IN COLON, 07/04/17) codeine (Unverified Adverse Reaction, Intermediate, HEART FLUTTERS, 07/04/17 ) Reported Meds & Prescriptions Reported Meds & Active Scripts Active Flexeril (Cyclobenzaprine HCl) 10 Mg Tab 10 Mg PO TID 5 Days [place] (Hydrocodone-Acetaminophen) 5 Mg-325 Mg Tab 1 Tab PO Q6H PRN Reported Probiotic (Lactobacillus Combination No.4) 3 Billion Cell Capsule Coq-10 (Coenzyme Q10 (Ubidecarenone)) 30 Mg Cap Centrum Women Tablet (Multivitamin/Iron/Folic Acid) 18 Mg Iron-400 Mcg Tablet 1 Tab PO DAILY Eql Cinnamon (Cinnamon) 500 Mg Cap 1,000 Mg PO HS Aspirin 81 Mg Chew 81 Mg CHEW DAILY Plavix (Clopidogrel Bisulfate) 75 Mg Tab 75 Mg PO DAILY Synthroid (Levothyroxine Sodium) 25 Mcg Tab 25 Mcg PO DAILY Losartan (Losartan Potassium) 50 Mg Tab 25 Mg PO DAILY Metoprolol Tartrate 25 Mg Tab 25 Mg PO HS Atorvastatin (Atorvastatin Calcium) 40 Mg Tab 40 Mg PO HS Review of Systems Except as stated in HPI: all other systems reviewed are Neg General / Constitutional: No: Fever, Chills Cardiovascular: No: Chest Pain or Discomfort Respiratory: No: Shortness of Breath Gastrointestinal: Positive: Abdominal Pain, No: Nausea, Vomiting, Diarrhea Genitourinary: No: Urgency, Frequency, Dysuria, Hematuria Skin: No Rash Neurologic: No: Weakness, Paresthesia, Sensory Disturbance Physical Exam Narrative GENERAL: Awake, alert, pleasant 71-year-old female who appears her stated age and is in no acute respiratory distress. SKIN: Focused skin assessment warm/dry. HEAD: Atraumatic. Normocephalic. EYES: No injection or drainage. ENT: No nasal bleeding or discharge. Mucous membranes pink and moist. NECK: Trachea midline. No JVD. CARDIOVASCULAR: Regular rate and rhythm. No murmur appreciated. RESPIRATORY: No accessory muscle use. Clear to auscultation. Breath sounds equal bilaterally. GASTROINTESTINAL: Abdomen soft, minimal tenderness left lower quadrant. Healing midline surgical scar. No rebound tenderness, guarding, rigidity. Back: No CVA tenderness. MUSCULOSKELETAL: No obvious deformities. No clubbing. No cyanosis. No edema. Pain is not elicited with flexion of the r left hip against resistance. Internal/external rotation left hip does not exacerbate pain. Positive femoral pulses to palpation bilaterally. NEUROLOGICAL: Awake and alert. No obvious cranial nerve deficits. Motor grossly within normal limits. Normal speech. Nonfocal. Oriented 3. PSYCHIATRIC: Appropriate mood and affect; insight and judgment normal. Data Data Last Documented VS Vital Signs Date Time Temp Pulse Resp B/P (MAP) Pulse Ox O2 Delivery O2 Flow Rate FiO2 07/04/17 16:55 59 14 178/66 (103) 100 Room Air 07/04/17 14:47 98.6 Orders Orders Urinalysis - C+S If Indicated (07/04/17 14:35) Complete Blood Count With Diff (07/04/17 15:30) Comprehensive Metabolic Panel (07/04/17 15:30) Lactic Acid (07/04/17 15:30) Ct Abd/Pel W Iv Contrast(Rout) (07/04/17 15:30) Iv Access Insert/Monitor (07/04/17 15:30) Ecg Monitoring (07/04/17 15:30) Oximetry (07/04/17 15:30) Morphine Inj (Morphine Inj) (07/04/17 15:30) Ondansetron Inj (Zofran Inj) (07/04/17 15:30) Sodium Chlor 0.9% 1000 Ml Inj (Ns 1000 M (07/04/17 15:30) Sodium Chloride 0.9% Flush (Ns Flush) (07/04/17 15:30) Electrocardiogram (07/04/17 ) Chest, Single Ap (07/04/17 ) Iohexol 350 Inj (Omnipaque 350 Inj) (07/04/17 17:17) Ed Discharge Order (07/04/17 18:07) Labs Laboratory Tests Test 07/04/17 15:00 07/04/17 15:45 07/04/17 15:50 Urine Collection Type CLEAN CATCH Urine Color YELLOW Urine Turbidity CLEAR Urine pH 6.0 Urine Specific [place] LESS/EQUAL 1.005 Urine Protein NEG mg/dL Urine Glucose (UA) NEG mg/dL Urine Ketones NEG mg/dL Urine Occult Blood NEG Urine Nitrite NEG Urine Bilirubin NEG Urine Urobilinogen 0.2 MG/DL Urine Leukocyte Esterase NEG Urine RBC 0-3 /hpf Urine WBC 0-2 /hpf Urine Squamous Epithelial Cells 0-5 /hpf Urine Transitional Epithelial Cells 0-5 /hpf Urine Bacteria FEW /hpf Microscopic Urinalysis Comment CULT NOT INDICATED White Blood Count 3.6 TH/MM3 Red Blood Count 4.06 MIL/MM3 Hemoglobin 11.7 GM/DL Hematocrit 33.8 % Mean Corpuscular Volume 83.2 FL Mean Corpuscular Hemoglobin 28.8 PG Mean Corpuscular Hemoglobin Concent 34.7 % Red Cell Distribution Width 14.3 % Platelet Count 92 TH/MM3 Mean Platelet Volume 8.1 FL Neutrophils (%) (Auto) 50.2 % Lymphocytes (%) (Auto) 35.6 % Monocytes (%) (Auto) 13.7 % Eosinophils (%) (Auto) 0.2 % Basophils (%) (Auto) 0.3 % Neutrophils # (Auto) 1.8 TH/MM3 Lymphocytes # (Auto) 1.3 TH/MM3 Monocytes # (Auto) 0.5 TH/MM3 Eosinophils # (Auto) 0.0 TH/MM3 Basophils # (Auto) 0.0 TH/MM3 CBC Comment AUTO DIFF Differential Comment AUTO DIFF CONFIRMED Platelet Estimate LOW Platelet Morphology Comment NORMAL Helmet Cells 1+ Celestino Cells 1+ Blood Urea Nitrogen 12 MG/DL Creatinine 0.81 MG/DL Random Glucose 90 MG/DL Total Protein 7.3 GM/DL Albumin 3.7 GM/DL Calcium Level 9.2 MG/DL Alkaline Phosphatase 59 U/L Aspartate Amino Transf (AST/SGOT) 40 U/L Alanine Aminotransferase (ALT/SGPT) 36 U/L Total Bilirubin 0.5 MG/DL Sodium Level 137 MEQ/L Potassium Level 4.1 MEQ/L Chloride Level 105 MEQ/L Carbon Dioxide Level 26.1 MEQ/L Anion Gap 6 MEQ/L Estimat Glomerular Filtration Rate 70 ML/MIN Lactic Acid Level 0.9 mmol/L [facility] Medical Decision Making Medical Screen Exam Complete: Yes Emergency Medical Condition: Yes Medical Record Reviewed: Yes Interpretation(s) EKG reveals sinus bradycardia with a heart rate of 54. Laboratory Tests Test 07/04/17 15:00 07/04/17 15:45 07/04/17 15:50 Urine Collection Type CLEAN CATCH Urine Color YELLOW Urine Turbidity CLEAR Urine pH 6.0 Urine Specific [place] LESS/EQUAL 1.005 Urine Protein NEG mg/dL Urine Glucose (UA) NEG mg/dL Urine Ketones NEG mg/dL Urine Occult Blood NEG Urine Nitrite NEG Urine Bilirubin NEG Urine Urobilinogen 0.2 MG/DL Urine Leukocyte Esterase NEG Urine RBC 0-3 /hpf Urine WBC 0-2 /hpf Urine Squamous Epithelial Cells 0-5 /hpf Urine Transitional Epithelial Cells 0-5 /hpf Urine Bacteria FEW /hpf Microscopic Urinalysis Comment CULT NOT INDICATED White Blood Count 3.6 TH/MM3 Red Blood Count 4.06 MIL/MM3 Hemoglobin 11.7 GM/DL Hematocrit 33.8 % Mean Corpuscular Volume 83.2 FL Mean Corpuscular Hemoglobin 28.8 PG Mean Corpuscular Hemoglobin Concent 34.7 % Red Cell Distribution Width 14.3 % Platelet Count 92 TH/MM3 Mean Platelet Volume 8.1 FL Neutrophils (%) (Auto) 50.2 % Lymphocytes (%) (Auto) 35.6 % Monocytes (%) (Auto) 13.7 % Eosinophils (%) (Auto) 0.2 % Basophils (%) (Auto) 0.3 % Neutrophils # (Auto) 1.8 TH/MM3 Lymphocytes # (Auto) 1.3 TH/MM3 Monocytes # (Auto) 0.5 TH/MM3 Eosinophils # (Auto) 0.0 TH/MM3 Basophils # (Auto) 0.0 TH/MM3 CBC Comment AUTO DIFF Differential Comment AUTO DIFF CONFIRMED Platelet Estimate LOW Platelet Morphology Comment NORMAL Helmet Cells 1+ [place] Cells 1+ Blood Urea Nitrogen 12 MG/DL Creatinine 0.81 MG/DL Random Glucose 90 MG/DL Total Protein 7.3 GM/DL Albumin 3.7 GM/DL Calcium Level 9.2 MG/DL Alkaline Phosphatase 59 U/L Aspartate Amino Transf (AST/SGOT) 40 U/L Alanine Aminotransferase (ALT/SGPT) 36 U/L Total Bilirubin 0.5 MG/DL Sodium Level 137 MEQ/L Potassium Level 4.1 MEQ/L Chloride Level 105 MEQ/L Carbon Dioxide Level 26.1 MEQ/L Anion Gap 6 MEQ/L Estimat Glomerular Filtration Rate 70 ML/MIN Lactic Acid Level 0.9 mmol/L CT abdomen and pelvis with contrast reveals the patient has an aorta SMA bypass which is widely patent. There is a cystic lesion in the pancreatic tail measuring approximately 1 x 1.6 cm and is slightly larger than seen on previous study, primary consideration would be an IPMN. MRI for follow-up would be warranted. Differential Diagnosis Differential diagnosis includes nephrolithiasis, diverticulitis, muscle strain, pyelonephritis, UTI, shingles, back pain with radiculopathy. Narrative Course IV was established, labs were drawn and sent, and the patient was placed on cardiac telemetry monitoring and continuous pulse oximetry monitoring. The patient was administered morphine, Zofran, and IV fluids. UA was sent to lab, was negative. Therefore, CT of the abdomen and pelvis with IV contrast was obtained. Lactic acid was sent to lab. Lactic acid is normal. White count is minimally low at 3.6. CMP was noted. Chest x-ray unremarkable. EKG reveals sinus bradycardia with no ischemic changes noted. CT of the abdomen and pelvis reveals cystic lesion of the pancreas, SMA aorta bypasses is widely patent, no evidence of nephrolithiasis or diverticulitis. The patient does have pain upon transitioning, may be musculoskeletal in nature, there is no stigmata of shingles. Patient is not a great candidate for nonsteroidal anti- inflammatories that she is currently on Plavix and has a history PVD. Therefore , patient will be placed on Flexeril and [place]. I did have a discussion with the patient regarding her pancreas cystic lesion and required follow-up with a primary physician for outpatient MRI. Diagnosis Primary Impression: Left flank pain Patient Instructions: General Instructions Additional Instructions: Medications as directed. Please provide the patient a copy of her CT and chest x-ray results as well as lab results at discharge. Follow-up with your primary physician. Outpatient follow-up in regards to cystic area on pancreas. Med/Other Pt SpecificInfo: Prescription(s) given Scripts Cyclobenzaprine (Flexeril) 10 Mg Tab 10 MG PO TID for Muscle Spasm for 5 Days, #15 TAB 0 Refills Prov: Kaiden Foreman MD 07/04/17 Hydrocodone-Acetaminophen ([place]) 5 Mg-325 Mg Tab 1 TAB PO Q6H Y for PAIN, #12 TAB 0 Refills Prov: Kaiden Foreman MD 07/04/17 Disposition: 01 DISCHARGE HOME Condition: Stable Kaiden Foreman MD Jul 04, 2017 15:37
[2017-07-04 15:45] VITALS: BP 125/48; PULSE 59; RESP 14; O2SAT 100
[2017-07-04 16:02] LABS: AUTOMATED NEUTROPHIL # 1.8 TH/MM3 (1.8-7.7); BASOPHIL % 0.3 % (0.0-2.0); EOSINOPHIL % 0.2 % (0.0-4.0); HEMATOCRIT 33.8 % (35.0-46.0); HEMOGLOBIN 11.7 GM/DL (11.6-15.3); LYMPH % 35.6 % (9.0-44.0); LYMPHOCYTE # 1.3 TH/MM3 (1.0-4.8); MEAN CELL VOLUME 83.2 FL (80.0-100.0); MEAN CORPUSCULAR HEMOGLOBIN 28.8 PG (27.0-34.0); MEAN CORPUSCULAR HGB CONC 34.7 % (32.0-36.0); MEAN PLATELET VOLUME 8.1 FL (7.0-11.0); MONO % 13.7 % (0.0-8.0); MONOCYTE # 0.5 TH/MM3 (0-0.9); NEUT % 50.2 % (16.0-70.0); PLATELET COUNT 92 TH/MM3 (150-450); RED BLOOD COUNT 4.06 MIL/MM3 (4.00-5.30); RED CELL DISTRIBUTION WIDTH 14.3 % (11.6-17.2); WHITE BLOOD COUNT 3.6 TH/MM3 (4.0-11.0)
[2017-07-04 16:17] LABS: CHLORIDE 105 MEQ/L (98-107); SODIUM (NA) 137 MEQ/L (136-145)
[2017-07-04 16:20] LABS: CALCIUM 9.2 MG/DL (8.5-10.1)
[2017-07-04 16:21] LABS: ALBUMIN 3.7 GM/DL (3.4-5.0); BICARBONATE 26.1 MEQ/L (21.0-32.0); BLOOD UREA NITROGEN 12 MG/DL (7-18); GLUCOSE,RANDOM 90 MG/DL (74-106)
[2017-07-04 16:24] LABS: ALT (GPT) 36 U/L (10-53); AST (GOT) 40 U/L (15-37); CREATININE 0.81 MG/DL (0.50-1.00); GLOMERULAR FILTRATION RATE 70 ML/MIN (>89)
[2017-07-04 16:25] LABS: TOTAL BILIRUBIN ADULT 0.5 MG/DL (0.2-1.0); TOTAL PROTEIN 7.3 GM/DL (6.4-8.2)
[2017-07-04 16:27] LABS: ALKALINE PHOSPHATASE 59 U/L (45-117)
[2017-07-04 16:33] LABS: BURR CELLS 1+ (NORMAL); HELMET CELLS 1+ (NORMAL)
[2017-07-04 16:55] VITALS: BP 178/66; PULSE 59; RESP 14; O2SAT 100
[2017-07-04] MEDS ORDERED: IOHEXOL 350 MG/ML 10 ML VIAL (for RAD DIAG) IVCONTRAST ONE (17:17)
--- NOTE | 2017-07-04 17:17 | RADRPT ---
EXAM DATE/TIME: 07/04/2017 16:45 [facility] COMPARISON: CHEST SINGLE AP, April 18, 2017, 13:17. CHEST SINGLE AP, April 24, 2017, 3:28. INDICATIONS : Chest pain. MEDICAL HISTORY : Hypertension. Smoker. SURGICAL HISTORY : Mesenteric artery bypass ENCOUNTER: Initial ACUITY: 1 day PAIN SCORE: 7/10 LOCATION: Bilateral lower chest FINDINGS: The lungs are clear without focal infiltrate. Previously noted right pleural effusion as resolved. Densely calcified granuloma in the lateral right midlung measuring 1 cm, stable in appearance. No ne w opacities. Both hemidiaphragms are well delineated. The heart is normal in size. CONCLUSION: No acute findings. No evidence of pleural effusion. Stable right lung granuloma. Ayan Machado MD on July 04, 2017 at 17:14 Board Certified Radiologist. This report was verified electronically.
--- NOTE | 2017-07-04 17:59 | RADRPT ---
EXAM DATE/TIME: 07/04/2017 17:06 [facility] COMPARISON: CT ABDOMEN & PELVIS W CONTRAST, March 03, 2017, 22:45. INDICATIONS : Left lower abdominal pain. IV CONTRAST: 85 cc Omnipaque 350 (iohexol) IV ORAL CONTRAST: No oral contrast ingested. RADIATION DOSE: 5.47 CTDIvol (mGy) MEDICAL HISTORY : Cardiovascular disease. Gastroparesis. SURGICAL HISTORY : Cholecystectomy. section.Mesenteric artery bypass. Cardiac stents. ENCOUNTER: Initial ACUITY: 2 days PAIN SCALE: 3/10 LOCATION: Left lower quadrant TECHNIQUE: Volumetric scanning of the abdomen and pelvis was performed. Using automated exposure control and ad justment of the mA and/or kV according to patient size, radiation dose was kept as low as reasonably achievable to obtain optimal diagnostic quality images. DICOM format image data is available electro nically for review and comparison. FINDINGS: The limited portion of the lung base visualized is clear. The appearance of the liver, spleen, adrenal glands and left kidney is within normal limits. The examination demonstrates a 1.2 cm cyst within the cortex of the right kidney. Note is made of dilation of the pancreatic duct in the tail of the pancreas and a small cystic lesion .. I do not see a focal discrete mass associated with this. It does however appear slightly larger th an when compared to a previous study dated 03/03/17. The examination demonstrates a widely patent aorto to SMA bypass graft. At the celiac origin appears to been brought down to the trunk of the SMA as well. 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 There is no retroperitoneal adenopathy. No free air or free fluid is seen. There is no free fluid within the pelvis. No iliac or inguinal adenopathy is seen. The loops of small and large bowel in the pelvis are unremarkable. The visualized osseous structures demonstrate degenerative changes but are otherwise intact. CONCLUSION: 1. The patient has a aorto/SMA bypass which is widely patent. 2. There is a cystic lesion in the pancreatic tail measuring approximately 1.0 x 1.6 cm and is slight ly larger than seen on previous study primary consideration would be IPMN. MRI for followup would be warranted. Kristopher Bass MD on July 04, 2017 at 17:33 Board Certified Radiologist. This report was verified electronically.
[2017-07-04] MEDS ORDERED: NORC5TAB PO (18:06)
[2017-07-04] MEDS ORDERED: CYCL10TA PO (18:06)
--- NOTE | 2017-07-05 16:44 | EKG ---
Date Performed: 07/04/2017 Time Performed: 16:44:59 PTAGE: 71 years EKG: SINUS BRADYCARDIA POSSIBLE RIGHT VENTRICULAR CONDUCTION DELAY Since previous tracing, no si gnificant change noted BORDERLINE ECG PREVIOUS TRACING : 04/12/2017 12.23 DOCTOR: Jasiel Martin Interpretating Date/Time 07/05/2017 16:41:49
== END 2017-07-04 18:30 | disposition home or self-care (01) ==
LOC: PHED 14:32
DX: R10.9 Unspecified abdominal pain (principal); R94.31 Abnormal electrocardiogram [ECG] [EKG]; M19.90 Unspecified osteoarthritis, unspecified site; E78.00 Pure hypercholesterolemia, unspecified; I10 Essential (primary) hypertension; E03.9 Hypothyroidism, unspecified; F17.200 Nicotine dependence, unspecified, uncomplicated; Z86.73 Personal history of transient ischemic attack (TIA), and cerebral infarction without residual deficits; Z85.828 Personal history of other malignant neoplasm of skin
CPT/HCPCS: 71045; 74177; 80053; 81001; 83605; 85025; 93005; 96361; 96374; 96375; 99285; J2270; J2405; J7030; Q9967